=== PATIENT | female | born 1955 | race Caucasian/White ===

== ENCOUNTER 2022-05-24 12:44 | Outpatient (CLI) | payer MEDICARE, SELFPAY ==
--- NOTE | ~2022-05-24 | MM_ITS ---
EXAMINATION: MM screening phill BI w glenn HISTORY: Screening mammogram TECHNIQUE: Craniocaudal and mediolateral oblique 3-D tomosynthesis images were obtained and synthetic 2-D images were generated. CAD analysis was submitted and interpreted. COMPARISON: No prior mammogram is available for comparison at this institution. BREAST PARENCHYMAL COMPOSITION: There are scattered areas of fibroglandular density. FINDINGS: There is no evidence of suspicious mass, calcification, or architectural distortion to sugg est malignancy in either breast. There has been no suspicious interval change. IMPRESSION: 1. No mammographic evidence of malignancy. 2. Recommend routine screening mammography in one year. BI-RADS Category 1: Negative Reviewed, dictated and finalized at location A. NG ROOM SUPERVISOR
== END 2022-05-24 12:45 | disposition home or self-care (01) ==
LOC: CHSIMG 12:50
PROVIDERS: PCP Internal Medicine; Visit Provider Internal Medicine
DX: Z12.31 Encounter for screening mammogram for malignant neoplasm of breast (principal)
CPT/HCPCS: 77063; 77067

== ENCOUNTER 2022-06-01 09:48 | Outpatient (CLI) | payer MEDICARE, SELFPAY ==
--- NOTE | ~2022-06-01 | US_ITS ---
Pelvic ultrasound. Clinical History: Cervical polyp, abnormal Pap smears Technique: Realtime transabdominal and transvaginal scanning of the pelvis was performed. Color flow Doppler and Doppler spectral analysis were performed. Findings: The uterus is anteverted. The endometrial stripe is poorly delineated due to heterogeneous myometrium. Questionable endometrial thickening up to 17 mm. Small cervical nabothian cyst noted. The right ovary is not visualized. No significant right ovarian or adnexal mass is seen. The left ovary measures 3.0 x 2.1 x 2.4 cm. No significant left ovarian or adnexal mass is seen. There is no evidence of free fluid in the cul de sac. Impression: Endometrial stripe is poorly delineated due to heterogeneous myometrium. Questionable endometrial thi ckening up to 17 mm, but confidence in this measurement is low. If there is any clinical concern for endometrial carcinoma or any history of postmenopausal bleeding, then MR should be strongly considere d to better evaluate for endometrial thickening/abnormality. Reviewed, dictated and finalized at [facility]. NING PROFESSIONAL Impression: Endometrial stripe is poorly delineated due to heterogeneous myometrium. Questi onable endometrial thickening up to 17 mm, but confidence in this measurement i s low. If there is any clinical concern for endometrial carcinoma or any histor y of postmenopausal bleeding, then MR should be strongly considered to better e valuate for endometrial thickening/abnormality.
== END 2022-06-01 09:49 | disposition home or self-care (01) ==
LOC: CHSIMG 09:51
PROVIDERS: PCP Internal Medicine; Visit Provider Nurse Practitioner Family
DX: N84.1 Polyp of cervix uteri (principal); R87.619 Unspecified abnormal cytological findings in specimens from cervix uteri; R93.89 Abnormal findings on diagnostic imaging of other specified body structures
CPT/HCPCS: 76830; 76856

== ENCOUNTER 2022-07-18 02:05 | Day surgery (SDC) | payer MEDICARE, SELFPAY ==
--- NOTE | 2022-07-11 13:16 | PC.NURSE ---
Report to the Outpatient Waiting Room, entrance under the green pavilion located off [facility], at time __0900 on date __07/18/22 . Planned Procedure Time: _1100 . Time changes happen often and if your time is changed the preop area will call you the afternoon before. - You and your visitor will be asked to self-screen and do not enter if you have any COVID symptoms. - Only one visitor is requested with a max of two and NO children visitors are allowed at this time. - The patient visitor may be requested to leave or wait in car when not with patient due to distancing restrictions. - A mask is optional within the hospital at this time. Patients may have clear liquids (water, carbonated beverages, clear teas, apple juice) until 3 hours prior to surgery with a maximum of 20 ounces. - No food from midnight until time of surgery - Infants may have breast milk until 4 hours before surgery, infant formula 6 hours prior to surgery. - Children will be allowed to drink immediately following surgery. If applicable, please bring a bottle or sippy cup to assist with drinking. Juice, water, soda, and popsicles are readily available. For infants on formula, please bring formula the day of surgery. Pacifiers are allowed. Take the following medications with a SIP of water the morning of surgery: ___NONE DO NOT STOP ANY OF YOUR OTHER PRESCRIPTION MEDICATIONS PRIOR TO SURGERY ?EXCEPT THE FOLLOWING Medications to discontinue per physician ____ALL VITAMINS/SUPPLEMENTS 3 DAYS PRE OP.LAST DOSE 07/14/22 Please no make-up, nail urdu, hairspray, perfume, deodorant, or body powder the day of surgery. No jewelry (including any body piercings) or valuables the day of surgery, leave them at home. Please take a shower or bath the night before, or the morning of, surgery with an antibacterial soap. Wear comfortable, loose fitting clothing. Children are encouraged to wear pajamas. - Jewelry must be removed prior to entering the operating room. Rings and piercings that are not removed may be cut off. - The hospital will not accept responsibility for valuables. - Please leave all valuables, including medications, at home the day of surgery. If you are going home after surgery, a licensed tow car driver must drive you home. - NO public transportation without another adult if you receive anesthesia. - We recommend that an adult stay with you for 24 hours following discharge. - We also recommend that you do not drive, make important decision, drink alcoholic beverages, or take any drugs that were not prescribed by your health care provider for at least 24 hours after your discharge time. Follow any additional instructions given to you from your surgeon. If you or anyone in your household have experienced Covid symptoms in the past week, please notify your surgeon or the nurse liaison at the phone number below for possible testing. Telephone instructions given to __PATIENT and asked if any additional questions and then verbalized understanding. Patient advised to call surgeon office or pre surgery nurse liaison [phone] if any additional questions.
[2022-07-11 13:21] VITALS: BMI 29.1
--- NOTE | 2022-07-17 16:39 | PM.IMHP ---
H&P: HPI History of Present Illness Date/Time: 07/17/22 16:39 Chief Complaint: Abnormal endometrial thickening. Narrative: Patient is postmenopausal female on HRT was referred for evaluation after poorly defined endometrium lining measured 17mm. She has not had any postmenopausal bleeding. She does a cervical polyp on the cervix. Cervical cytology normal. She has been recommended for histologic evaluation of the thickened endometrium and has opted for D and C hysteroscopy and removal of endometrial and/or endocervical lesion. She has been recommended to stop HRT until pathology results are confirmed to be benign. Review of Systems Review of Systems: All systems reviewed & are unremarkable except as noted in HPI and below Constitutional: Constitutional: Reports no additional constitutional complaints Eyes: Eyes: Reports no additional eye complaints Cardiovascular: Cardiovascular: Reports no additional cardiovascular complaints Respiratory: Respiratory: Reports no additional respiratory complaints Gastrointestinal: Gastrointestinal: Reports no additional gastrointestinal complaints Genitourinary: Genitourinary: Reports no additional female genitourinary complaints and Reports as per HPI Integumentary/Breasts: Skin/Breast: Reports system reviewed and no additional complaints, except as docu Neurologic: Reports system reviewed and no additional complaints, except as documented Psychiatric: Psychiatric: Reports no additional psychiatric complaints Hematologic/Lymphatic: Hematologic/Lymphatic: Reports no additional hematologic/lymphatic complaints [facility] Past Medical History Medical History (Updated 06/29/22 @ 09:33 by Gorge Duval MD) Acid reflux Anxiety Basal cell carcinoma of skin of face 2007, 2016 History of Mohs micrographic surgery for skin cancer 2007 face, 2017 face, 2020 right upper arm Hypertension IBS (irritable bowel syndrome) Incontinence 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 Thickened endometrium Surgical History Surgical History (Updated 06/29/22 @ 08:08 by Kaylin Stringer MA) History of arthroscopic knee surgery History of colonoscopy History of esophagogastroduodenoscopy (EGD) History of Mohs surgery for squamous cell carcinoma in situ of skin Status post creation of urethral sling by suprapubic approach Family History Family History (Updated 06/29/22 @ 06:51 by Trista Leal CMA) Mother Hypertension Depression Fibrotic lung diseases Father Hypertension Heart disease Crohn's disease Sibling Multiple sclerosis Social History Social History (Updated 06/29/22 @ 07:52 by Kaylin Stringer MA) Smoking status: Never smoker Alcohol intake: current Drinks per week: 6 Alcohol use details: beer and wine Substance use: never Lack of Transportation: No Lack of Food: Never True Current Housing: I Have Housing Concerned About Future Housing: No Difficulty Paying Gas/Electric Bills: No Difficulty Paying for Meds: No Currently Unemployed: YES Living arrangements: with family Occupation/Education: retired Gender identity (if verbalized by the patient): Female Sexual Orientation (if Verbalized by the Patient): Straight or Heterosexual Spiritual care concerns: No Agree to blood products: Yes Meds Home Medications and Allergies Home Medications Medication Instructions Recorded Confirmed Type acetaminophen 500 mg tablet 500 mg PO Q6H PRN Pain 06/29/22 07/18/22 History (Tylenol Extra Strength) ascorbate calcium (vitamin C) 500 500 mg PO DAILY 06/29/22 07/18/22 History mg tablet azelastine 137 mcg (0.1 %) nasal 2 spray intranasal Q12H 06/29/22 07/18/22 History spray aerosol calcium carbonate 500 mg calcium 500 mg PO DAILY 06/29/22 07/18/22 History (1,250 mg) chewable tablet (Calcium 500) cetirizine 10 mg capsule (Zyrtec) 10 mg PO DAILY PRN Allergy Symptoms 06/29/22 07/18/22 History cholecalciferol (vitamin
[2022-07-18 09:01] VITALS: BP 150/71; PULSE 71; RESP 20; TEMP 36.1; O2SAT 100
--- NOTE | 2022-07-18 09:48 | WPDANESEPPF ---
Anes - Initial Pre Proc Eval Procedure: Operation Date: 07/18/22 11:00 Proposed Procedures p Hysteroscopy Dilation and Curettage, Possible Removal Endometrial Lesions - Gorge Duval MD Date/Time: 07/18/22 09:48 Surgeon: Gorge Duval MD Pre Op Diagnosis: thickened endometrium Patient Data Age: 67 Gender: F Height: 1.65 m Weight: 79.4 kg Allergies Allergy/AdvReac Type Severity Reaction Status Date / Time adhesive AdvReac Unknown Rash Verified 07/18/22 09:05 latex AdvReac Unknown Rash Verified 07/18/22 09:05 Home Medications Medication Instructions Recorded Confirmed Type acetaminophen 500 mg tablet 500 mg PO Q6H PRN Pain 06/29/22 07/18/22 History (Tylenol Extra Strength) ascorbate calcium (vitamin C) 500 500 mg PO DAILY 06/29/22 07/18/22 History mg tablet azelastine 137 mcg (0.1 %) nasal 2 spray intranasal Q12H 06/29/22 07/18/22 History spray aerosol calcium carbonate 500 mg calcium 500 mg PO DAILY 06/29/22 07/18/22 History (1,250 mg) chewable tablet (Calcium 500) cetirizine 10 mg capsule (Zyrtec) 10 mg PO DAILY PRN Allergy Symptoms 06/29/22 07/18/22 History cholecalciferol (vitamin D3) 50 50 mcg PO DAILY 06/29/22 07/18/22 History mcg (2,000 unit) capsule coenzyme Q10 75 mg capsule (Ultra 100 mg PO DAILY 06/29/22 07/18/22 History CoQ10) losartan 100 mg tablet 100 mg PO DAILY 06/29/22 07/18/22 History omeprazole 40 mg capsule,delayed 40 mg PO DAILY 06/29/22 07/18/22 History release rosuvastatin 10 mg tablet 10 mg PO DAILY 06/29/22 07/18/22 History valacyclovir 500 mg tablet 500 mg PO DAILY 06/29/22 07/18/22 History Patient hx anesthesia problems: none Family hx anesthesia problems: none Results Review: All pre-operative results and documents have been reviewed as part of the pre-operative evaluation. 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 Thickened endometrium Surgical History Surgical History (Updated 06/29/22 @ 08:08 by Kaylin Stringer MA) History of arthroscopic knee surgery History of colonoscopy History of esophagogastroduodenoscopy (EGD) History of Mohs surgery for squamous cell carcinoma in situ of skin Status post creation of urethral sling by suprapubic approach Family History Family History (Updated 06/29/22 @ 06:51 by Trista Leal CMA) Mother Hypertension Depression Fibrotic lung diseases Father Hypertension Heart disease Crohn's disease Sibling Multiple sclerosis Social History Social History (Updated 06/29/22 @ 07:52 by Kaylin Stringer MA) Smoking status: Never smoker Alcohol intake: current Drinks per week: 6 Alcohol use details: beer and wine Substance use: never Lack of Transportation: No Lack of Food: Never True Current Housing: I Have Housing Concerned About Future Housing: No Difficulty Paying Gas/Electric Bills: No Difficulty Paying for Meds: No Currently Unemployed: YES Living arrangements: with family Occupation/Education: retired Gender identity (if verbalized by the patient): Female Sexual Orientation (if Verbalized by the Patient): Straight or Heterosexual Spiritual care concerns: No Agree to blood products: Yes Anes - Eval Final PreProcedure Day of Procedure 07/18/22 09:48 Patient weight: overweight Heart: regular rate and rhythm Lungs: clear to auscultation and normal air movement Airway: Mallampati scale class II Neurological: alert and oriented Last oral intake: >/= 8 hours ASA classification: II Emergent: no Anesthetic plan: proceed Anesthesia type and monitoring: general GIVS and LMA Results Review: All pre-opera
[2022-07-18] MEDS: ACETAMINOPHEN 500 MG TABLET 1000 MG PO (10:01)
[2022-07-18] MEDS: LACTATED RINGERS 1,000 ML 30 ML IV CONT ×2 (10:05→11:22)
--- NOTE | 2022-07-18 10:40 | WPDHPUPDATE1 ---
History and Physical Update Update Date/Time: 07/18/22 10:40 History and Physical has been reviewed, including an updated exam of the patient. There are NO changes in the patient's condition. Risks, benefits, and alternatives have been discussed and questions answered. Patient agrees to proceed with procedure.
[2022-07-18] MEDS: ceFAZolin 2 GM/D5W 50 ML 2 GM/50 ML BAG IVPB (10:56)
[2022-07-18] MEDS: LIDOCAINE HCL 1% LOCAL INJ 20 ML VIAL 10 ML INFILTRATE (11:08)
[2022-07-18 11:22] VITALS: BP 129/64; PULSE 74; RESP 12; O2SAT 97
[2022-07-18 11:50] VITALS: BP 120/60; PULSE 63; RESP 20
--- NOTE | 2022-07-18 11:56 | W.PM.PROC2 ---
Procedure Note - Detailed Date of Procedure 07/18/22 Pre-op Diagnosis thickened endometrium Post-op Diagnosis Same Procedure Performed diagnostic hysteroscopy and dilation and curettage Surgeon Gorge Duval MD Anesthesia MAC and Local Indications patient with thickened endometrial stripe on ultrasound she is on hormone replacement therapy she has never had any postmenopausal bleeding she did have a cervical polyp on prior exam. Findings Cervix normal no polyp. Uterine cavity sounded to 7 cm there was scarring of the cavity no abnormal lesions seen. Description of Procedure After informed consent was obtained patient was taken to the operating room and adequate IV sedation was administered she was placed in low lithotomy position. Exam under anesthesia was performed uterus normal size no adnexal masses palpated. She was prepped and draped in sterile fashion. Attention was turned to the vagina. Speculum was inserted. Single-tooth tenaculum placed on anterior lip of the cervix. Cervical block was performed with lidocaine at the cervical vaginal interface at 2:58 a.m. and 10 o'clock position. Uterus was sounded to 7 cm. Cervix was dilated to an 8 Lucero dilator. Hysteroscope was inserted. The cavity appeared atrophic and scarring throughout the cavity no lesions. A curettage was then performed and could feel that some of the scarring was released with the curettage small amount of tissue was obtained. The hysteroscope was inserted again and the cavity appeared same with scarring present. No lesions noted. Hysteroscope was removed the deficit was noted to be 80 cc total insufflation fluid was 700 cc. Single-tooth tenaculum removed hemostasis was noted the speculum was removed the patient tolerated procedure well sponge count was correct and she was taken to recovery stable condition. Estimated Blood Loss 5 Drains No Packing No Pathology Yes ( endometrial curetting) Complications No immediate complications Condition Stable Disposition Same day [facility] Billing Surgery - Charge Forward: Surgery Billing
[2022-07-18 12:15] VITALS: BP 149/59; PULSE 65; RESP 20
== END 2022-07-18 12:29 | disposition home or self-care (01) ==
PROVIDERS: PCP Internal Medicine; Visit Provider Obstetrics & Gynecology
PROC: 0U5B8ZZ Destruction of Endometrium, Via Natural or Artificial Opening Endoscopic (ICD-10-PCS; CPT 58563; principal; 2022-07-18 11:00)
DX: N85.8 Other specified noninflammatory disorders of uterus (principal); I10 Essential (primary) hypertension; K21.9 Gastro-esophageal reflux disease without esophagitis
CPT/HCPCS: 58558; 88305; 88342; A9270; J0690; J2250; J2405; J2704; J3010; J7120

== ENCOUNTER 2022-07-23 10:57 | Outpatient (CLI) | payer MEDICARE, SELFPAY | END 2022-07-23 10:58 | disposition home or self-care (01) | LOC: CHSIMG 10:59 | PROVIDERS: PCP Internal Medicine; Visit Provider Internal Medicine | DX: S89.92XA Unspecified injury of left lower leg, initial encounter (principal) | CPT/HCPCS: 73562 ==

== ENCOUNTER → 2022-07-26 08:13 | Outpatient (CLI) | payer MEDICARE, SELFPAY ==
--- NOTE | ~2022-07-26 | MR_ITS ---
EXAMINATION: MR knee LT wo con DATE: 07/26/2022 09:07 INDICATION: Internal derangement of the left knee TECHNIQUE: Magnetic resonance imaging (MRI) of the left knee was performed without intravenous contra st. Sequences included coronal PD-weighted FSE, coronal PD-weighted FS FSE, sagittal T2-weighted FSE , sagittal PD-weighted FS FSE and axial PD weighted fat saturated FSE. COMPARISON: Radiographs dated 07/23/2022 FINDINGS: Medial compartment: Complex medial meniscal tear with medial extrusion of the meniscal body. This includes a full-thickne ss radial tear/avulsion at the posterior root as well as and longitudinal horizontal tear plane which extends to the intra-articular surface of the inner third of the posterior horn and body of the meni scus. Partial-thickness cartilage loss and superimposed deep chondral fissuring without degenerative subchondral changes along the posterior third of the medial tibial plateau and juxtaposed central xuan ghtbearing medial femoral condyle. Lateral compartment: Lateral meniscus is normal. Articular cartilage is normal. Patellofemoral compartment: Deep chondral ulceration without degenerative subchondral changes at the inferior aspect of the troch lear groove. Remaining cartilage in the patellofemoral compartment appears normal. Ligaments and tendons: Anterior and posterior cruciate ligaments are normal. The medial collateral ligament and fibular marcin ateral ligament complex are normal. Patellar tendon is normal. Minimal tendinopathy and small entheso phytes at the patellar insertion of the distal quadriceps tendon. The visualized medial and lateral h amstring tendons as well as the iliotibial band are normal. Fluid: Small left knee joint effusion. There is mild soft tissue edema surrounding the knee and more promine ntly extending caudally into the calf from a small potentially partially ruptured Eddy's cyst along the posterior medial aspect of the medial head of the gastrocnemius muscle. No loose osteochondral bhumi dies identified. Osseous/other: Normal marrow signal. No fracture or pathologic marrow replacing process. IMPRESSION: 1. Complex medial meniscal tear including full-thickness radial tear/avulsion at the posterior root. 2. Mild osteoarthritis with regions of moderate grade chondromalacia in the medial and patellofemoral compartments. 3. Likely reactive small left knee joint effusion and soft tissue edema extending caudally from a lik christiana partially ruptured small Eddy's cyst. Reviewed, dictated and finalized at location A. IMPRESSION: 1. Complex medial meniscal tear including full-thickness radial tear/avulsion a t the posterior root. 2. Mild osteoarthritis with regions of moderate grade chondromalacia in the med ial and patellofemoral compartments. 3. Likely reactive small left knee joint effusion and soft tissue edema extendi ng caudally from a likely partially ruptured small Eddy's cyst.
== END ==
PROVIDERS: PCP Internal Medicine; Visit Provider Internal Medicine
DX: S83.232A Complex tear of medial meniscus, current injury, left knee, initial encounter (principal); M17.12 Unilateral primary osteoarthritis, left knee; M22.42 Chondromalacia patellae, left knee; X58.XXXA Exposure to other specified factors, initial encounter
CPT/HCPCS: 73721

== ENCOUNTER 2022-07-30 14:42 | Outpatient (CLI) | payer MEDICARE, SELFPAY ==
--- NOTE | ~2022-07-30 | XR_ITS ---
EXAMINATION: XR wrist LT min 3V DATE: 07/30/2022 15:05 INDICATION: Left wrist pain. TECHNIQUE: 4 views of left wrist were obtained. COMPARISON: None. FINDINGS: Bone alignment is normal. There is neutral ulnar variance. No fracture. There is mild osteo arthrosis of first carpometacarpal joint. There is degenerative cystic change in proximal lunate, lik christiana ulnolunate impaction syndrome. IMPRESSION: 1. Mild polyarticular osteoarthritis. Reviewed, dictated and finalized at location A.
== END 2022-07-30 14:43 | disposition home or self-care (01) ==
LOC: CHSIMG 14:44
PROVIDERS: PCP Internal Medicine; Visit Provider Internal Medicine
DX: S69.92XA Unspecified injury of left wrist, hand and finger(s), initial encounter (principal); M19.012 Primary osteoarthritis, left shoulder
CPT/HCPCS: 73110

== ENCOUNTER 2022-09-05 18:47 | Emergency (ER) | payer MEDICARE, SELFPAY ==
[2022-09-05 18:48] VITALS: BP 148/76; PULSE 71; RESP 20; TEMP 36.8; O2SAT 99
--- NOTE | 2022-09-05 19:28 | ED.GENADULT ---
HPI - General Adult General Chief complaint: Wound/Laceration Stated complaint: Laceration L finger Time Seen by Provider: 09/05/22 18:51 History of Present Illness HPI narrative: Healthy 67yo woman presents with laceration to her left middle finger sustained tonight while trying to cut a piece of corn. Clean knife. Clean corn. No tissue loss or nailbed damage. Related Data Home Medications Medication Instructions Recorded Confirmed ascorbate calcium (vitamin C) 500 500 mg PO DAILY 06/29/22 09/05/22 mg tablet azelastine 137 mcg (0.1 %) nasal 2 spray intranasal Q12H 06/29/22 09/05/22 spray aerosol calcium carbonate 500 mg calcium 500 mg PO DAILY 06/29/22 09/05/22 (1,250 mg) chewable tablet (Calcium 500) cetirizine 10 mg capsule (Zyrtec) 10 mg PO DAILY PRN Allergy Symptoms 06/29/22 09/05/22 cholecalciferol (vitamin D3) 50 50 mcg PO DAILY 06/29/22 09/05/22 mcg (2,000 unit) capsule coenzyme Q10 75 mg capsule (Ultra 100 mg PO DAILY 06/29/22 09/05/22 CoQ10) losartan 100 mg tablet 100 mg PO DAILY 06/29/22 09/05/22 omeprazole 40 mg capsule,delayed 40 mg PO DAILY 06/29/22 09/05/22 release rosuvastatin 10 mg tablet 10 mg PO DAILY 06/29/22 09/05/22 valacyclovir 500 mg tablet 500 mg PO DAILY 06/29/22 09/05/22 Allergies Allergy/AdvReac Type Severity Reaction Status Date / Time adhesive AdvReac Unknown Rash Verified 09/05/22 19:00 latex AdvReac Unknown Rash Verified 09/05/22 19:00 Review of Systems Review of Systems: Healthy 67yo woman presents with laceration to her left middle finger sustained tonight while trying to cut a piece of corn. Clean knife. Clean corn. No tissue loss or nailbed damage. 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 Thickened endometrium Surgical History Surgical History History of arthroscopic knee surgery History of colonoscopy History of esophagogastroduodenoscopy (EGD) History of Mohs surgery for squamous cell carcinoma in situ of skin S/P dilation and curettage Status post creation of urethral sling by suprapubic approach Family History Family History Mother Hypertension Depression Fibrotic lung diseases Father Hypertension Heart disease Crohn's disease Sibling Multiple sclerosis Social History Social History Smoking status: Never smoker Alcohol intake: current Drinks per week: 6 Alcohol use details: beer and wine Substance use: never Lack of Transportation: No Lack of Food: Never True Current Housing: I Have Housing Concerned About Future Housing: No Difficulty Paying Gas/Electric Bills: No Difficulty Paying for Meds: No Currently Unemployed: YES Living arrangements: with family Occupation/Education: retired Gender identity (if verbalized by the patient): Female Sexual Orientation (if Verbalized by the Patient): Straight or Heterosexual Spiritual care concerns: No Agree to blood products: Yes Exam Const: General: healthy appearing, no acute distress and alert Eyes: Conjunctivae: conjunctivae normal Resp: Effort & Inspection: normal respiratory effort and not labored Cardio: Rate: regular rate Skin: General skin exam: normal color,
[2022-09-05 19:56] VITALS: BP 128/68; PULSE 70; RESP 18; TEMP 36.4; O2SAT 98
== END 2022-09-05 19:59 | disposition home or self-care (01) ==
PROVIDERS: Emergency Provider Emergency Medicine; PCP Internal Medicine
DX: S61.213A Laceration without foreign body of left middle finger without damage to nail, initial encounter (principal); W26.0XXA Contact with knife, initial encounter; I10 Essential (primary) hypertension; K21.9 Gastro-esophageal reflux disease without esophagitis; F41.9 Anxiety disorder, unspecified
CPT/HCPCS: 12001; 99282

== ENCOUNTER 2023-04-23 11:20 | Outpatient (CLI) | payer MEDICARE, SELFPAY ==
--- NOTE | ~2023-04-23 | XR_ITS ---
XR lumbar spine 2-3V DATE: 04/23/2023 12:03 INDICATION: Back pain TECHNIQUE: AP, lateral, coned lateral lumbosacral views COMPARISON: None FINDINGS: The lumbar vertebrae are normally aligned. No fracture or bone destruction or spondylolisth esis. There is mild degenerative disc disease and spurring at L1-2, L2-3 and L3-4. There is severe degenerative disc disease at L4-5 and L5-S1 as well as prominent degenerative change at the apophyseal joints at the mid and lower lumbar spine. Primary spinal stenosis is not excluded. The included lower thoracic and lumbar pedicles are intact.. Mild abdominal aortic calcification. IMPRESSION: Multilevel degenerative disc disease, severe at L4-5 and L5-S1 Primary lumbar spinal stenosis is not excluded; CT lumbar spine would be helpful for evaluation of an y suspected primary lumbar spinal stenosis.. Reviewed, dictated and finalized at location L. BER MAGISTRATE IMPRESSION: Multilevel degenerative disc disease, severe at L4-5 and L5-S1 Primary lumbar spinal stenosis is not excluded; CT lumbar spine would be helpfu l for evaluation of any suspected primary lumbar spinal stenosis..
--- NOTE | ~2023-04-23 | XR_ITS ---
XR_CERV2-3V_CR DATE: 04/23/2023 12:03 INDICATION: Neck pain, bilateral arm and hand numbness. TECHNIQUE: AP, open-mouth, lateral views COMPARISON: None FINDINGS: C1 and C2 are normally aligned and the odontoid process is intact. No fracture or dislocati on or locked facet or prevertebral soft tissue swelling. There is moderate loss of interspace height and mild spurring at C6-7. The remaining cervical intersp aces are well preserved. There is uncovertebral joint spurring bilaterally at C6-7. IMPRESSION: Moderate degenerative disc disease and bilateral uncovertebral joint spurring at C6-7 Reviewed, dictated and finalized at Location A. Reviewed, dictated and finalized at location L. T CLEANER IMPRESSION: Moderate degenerative disc disease and bilateral uncovertebral join t spurring at C6-7
== END 2023-04-23 11:21 | disposition home or self-care (01) ==
LOC: CHSIMG 11:23
PROVIDERS: PCP Internal Medicine; Visit Provider Internal Medicine
DX: M54.50 Low back pain, unspecified (principal); M51.36 Other intervertebral disc degeneration, lumbar region; M50.323 Other cervical disc degeneration at C6-C7 level
CPT/HCPCS: 72040; 72100

== ENCOUNTER 2023-04-24 15:04 | Outpatient (CLI) | payer MEDICARE, SELFPAY ==
--- NOTE | ~2023-04-24 | MR_ITS ---
EXAMINATION: MR lumbar spine wo con DATE: 04/24/2023 16:15 INDICATION: Low back pain. TECHNIQUE: Magnetic resonance imaging (MRI) of the lumbar spine was performed without intravenous con trast. Sequences included sagittal T2-weighted FSE, sagittal T2-weighted FS FSE, sagittal T1-weighted FSE, and axial T2-weighted FSE. COMPARISON: Lumbar spine radiographs 04/23/2023 FINDINGS: There is 6 degrees dextrocurvature of lumbar spine. There is 3 mm retrolisthesis of L5 on S 1. Vertebral body heights are normal. There is mildly decreased disc height at L3-L4 and severely dec reased disc height at L4-L5 and L5-S1. The distal spinal cord signal intensity is normal. The conus m edullaris is at L1-L2. The following disc levels are specifically discussed: L1-L2: The disc does not extend beyond the endplate margin. There is mild bilateral facet joint osteo arthritis. There is no neural foraminal stenosis. There is no central canal stenosis. L2-L3: The disc is bulging. There is severe bilateral facet joint osteoarthritis. There is mild bilat eral neural foraminal stenosis. There is mild central canal stenosis. L3-L4: The disc is bulging. There is severe bilateral facet joint osteoarthritis. There is mild bilat eral neural foraminal stenosis. There is mild central canal stenosis. L4-L5: The disc is bulging with superimposed left subarticular zone extrusion with 12 mm inferior ext ension and with mass effect on left L5 nerve root in left lateral recess. There is severe right and m oderate left facet joint osteoarthritis. There is moderate bilateral neural foraminal stenosis. There is mild central canal stenosis. There is severe stenosis of the lateral recesses. L5-S1: The disc is bulging. There is severe bilateral facet joint osteoarthritis. There is moderate r ight and severe left neural foraminal stenosis. There is mild central canal stenosis. There is severe stenosis of the lateral recesses. IMPRESSION: 1. Severe lower lumbar spondylosis. Reviewed, dictated and finalized at location E. ODULE ASSEMBLY SUPERVISOR
--- NOTE | ~2023-04-24 | MR_ITS ---
EXAMINATION: MR cervical spine wo con DATE: 04/24/2023 16:15 INDICATION: Neck pain. TECHNIQUE: Magnetic resonance imaging (MRI) of the cervical spine was performed without intravenous c ontrast. COMPARISON: Cervical spine radiographs 04/23/2023 FINDINGS: Bone alignment is normal. Vertebral body heights are normal. There is mildly decreased disc height at C6-C7. The spinal cord signal intensity is normal. The following disc levels are specifica lly discussed: C2-C3: The disc does not extend beyond the endplate margin. There is no uncovertebral joint osteoarth ritis. There is mild right and moderate left facet joint osteoarthritis. There is no neural foraminal stenosis. There is no central canal stenosis. C3-C4: There is a central protrusion. There is no uncovertebral joint osteoarthritis. There is modera te bilateral facet joint osteoarthritis. There is no neural foraminal stenosis. There is mild central canal stenosis. C4-C5: There is a central protrusion. There is mild bilateral uncovertebral joint osteoarthritis. The re is moderate bilateral facet joint osteoarthritis. There is no neural foraminal stenosis. There is mild central canal stenosis. C5-C6: There is a central protrusion. There is no uncovertebral joint osteoarthritis. There is severe right and mild left facet joint osteoarthritis. There is mild right neural foraminal stenosis. There is mild central canal stenosis. C6-C7: The disc is bulging. There is severe bilateral uncovertebral joint osteoarthritis. There is se ayla right and moderate left facet joint osteoarthritis. There is moderate bilateral neural foraminal stenosis. There is mild central canal stenosis. C7-T1: The disc does not extend beyond the endplate margin. There is no uncovertebral joint osteoarth ritis. There is mild bilateral facet joint osteoarthritis. There is no neural foraminal stenosis. The re is no central canal stenosis. IMPRESSION: 1. Moderate cervical spondylosis. Reviewed, dictated and finalized at location E. ON AND BOND COLLECTION CLERK
== END 2023-04-24 15:05 ==
PROVIDERS: PCP Internal Medicine; Visit Provider Internal Medicine
DX: M47.892 Other spondylosis, cervical region (principal); M47.896 Other spondylosis, lumbar region
CPT/HCPCS: 72141; 72148

== ENCOUNTER 2023-05-08 15:48 | Outpatient (RCR) | payer MEDICARE, SELFPAY ==
--- NOTE | 2023-05-08 17:34 | OPREHPOC ---
Outpatient Therapy Plan of Care This is a Multidisciplinary Plan of Care that may contain components documented by all disciplines (PT, OT, and ST.) PT Problem 1 PT Problem #1 Knowledge Deficit PT Goal 1 Goal 1. independent and compliant with HEP Target Visit 4 PT Problem 2 PT Problem #2 Impaired Strength PT Goal 1 Goal 1. improve bilateral shoulder strength to 5/5 overall 2. improve bilateral hip strength to 5/5 overall 3. improve core strength to 4/5 4. patient to hold bridge for 30 seconds without posture loss Target Visit 9 PT Problem 3 PT Problem #3 Pain PT Goal 1 Goal 1. patient to report mild or less pain and symptoms with routine activities to improve quality of life. Target Visit 9 PT Problem 4 PT Problem #4 Impaired Functional Mobil PT Goal 1 Goal 1. patient to report centralization of UE and LE radicular symptoms. 2. oswestry to display 20% or less functional deficits 3. NDI to display 20% or less functional deficits 4. patient to display improved posture of the shoulders and neck with less rounding and forward head Target Visit 9
--- NOTE | 2023-05-08 17:34 | PTOPEVAL1 ---
Assessment and note entered by JT File, PT Evaluation Information Assessment Status Evaluation Diagnosis chronic neck/lower back pain Onset 05/03/23 Subjective Information patient reports she has been having pain in the neck since 2007. she reports she has been managing with home health aide caregiver. she reports since she retired in 2018 she has been less active. she reports since a few years ago, she has been traveling more back and forth to her parents property. she reports after her father she had to manage selling and handling his estate which meant a lot of lifting of boxes and furniture. she reports from [id number] all her issues were on her L UE. she reports she was having numbness/tingling in this arm. she reports during her traveling times, she was carrying lots of legal papers and a computer in a bag on the R shoulder. she reports she is here for the pain in her arms. she reports she has excrutiating pain in both arms. she reports she also has numbness and tingling in both arms. she reports she has numbness and down to the hand bilaterally. she reports mostly to the thumb, index, and middle finger. she reports at times she has symptoms in the ring and little finger, but no as often and not lasting. she reports she has difficulty with opening jars with the R more than the L hand. she reports the symptoms run down the whole arm. Reported Pain Level Pain Score Moderate Pain: Arambula Eddy Additional Pain Score Comments neck and lower back Assessment PT Clinical Summary mrs. sherry mullen is a 68 yo woman who presents to skilled PT for evaluation and treatment of neck and lower back pain. she is complicated by a long history of symptoms, but recently has had a flare up from increased lifting and travel. she presents today with signs and symptoms of lumbar and cervical radiculopathy. however, dequervains tenosynovitis of the L wrist, and carpal tunnel of the R wrist cannot be ruled out. she presents with limited passive and active cervical rom, decreased flexibility, mm weakness, core weakness, and radicular symptoms of the L LE and bilateral UE's. she would benefit from continued skilled PT to improve her objective/functional deficits and progress towards return to prior level functional activity performance and quality of life. Plan of Care Interventions Electrical
--- NOTE | 2023-05-30 14:33 | OPREHPOC ---
Outpatient Therapy Plan of Care This is a Multidisciplinary Plan of Care that may contain components documented by all disciplines (PT, OT, and ST.) PT Problem 1 PT Problem #1 Knowledge Deficit PT Goal 1 Goal 1. independent and compliant with HEP Target Visit 4 Progress Met PT Problem 2 PT Problem #2 Impaired Strength PT Goal 1 Goal 1. improve bilateral shoulder strength to 5/5 overall. not met 2. improve bilateral hip strength to 5/5 overall. not met 3. improve core strength to 4/5. not met 4. patient to hold bridge for 30 seconds without posture loss. met Target Visit 13 Progress Partially Met PT Problem 3 PT Problem #3 Pain PT Goal 1 Goal 1. patient to report mild or less pain and symptoms with routine activities to improve quality of life. Target Visit 13 Progress Partially Met PT Problem 4 PT Problem #4 Impaired Functional Mobil PT Goal 1 Goal 1. patient to report centralization of UE and LE radicular symptoms. not met 2. oswestry to display 20% or less functional deficits. not met 3. NDI to display 20% or less functional deficits. not met 4. patient to display improved posture of the shoulders and neck with less rounding and forward head. not met Target Visit 13
--- NOTE | 2023-05-30 14:33 | PTOPREEVAL ---
Assessment and note entered by JT File, PT Evaluation Information Assessment Status Re-evaluation Diagnosis chronic neck/lower back pain Onset 05/03/23 Subjective Information patient reports overall everything with the neck and the lower back are better. she reports she continues to have symptoms in the fingers in the R hand, and the L hand is fine. she reports the neck continues to crunch a lot. she reports she feels the exercises for the neck do help. she reports her R shoulder blade is sensitive, but not near as tender/sensitive as her initial evaluation. she reports her lower back is about the same. she reports she has less sciatic symptoms with exercises. she reports it is still difficult to stand on her kitchen floor without being on a foam mat. Reported Pain Level Pain Score 2,2: Self Report Assessment PT Clinical Summary mrs. sherry mullen presents to skilled PT services for her 9th skilled therapy visit today. she displays improved cervical rotation and side bending, decreased pain in the neck and back, and improve oswestry and NDI scores. she continues to have deficits in achievement of goals for core/UE/ LE strength, and functional activity/oswestry/NDI performance. due to her improvements, but also continued deficits, patient would benefit from continued skilled PT to address her remaining unmet goals. Plan of Care Interventions Electrical Stimulation,Hot Pack/Cold Pack,Manual Therapy,Mechanical Traction,Neuro Re-education, Patient/Caregiver Educati,Therapeutic Activities, Therapeutic Exercise PT Services Indicated Yes Treatment Frequency and continue skilled PT 2x weekly for 4 more visits Duration These treatments will address the objective and functional deficits as defined above. The patient will be advanced safely and appropriately in order for the patient to progress towards his/her prior level of function. Additional exercises will be introduced and as well as a comprehensive home exercise program upon discharge, if needed, ?to ensure carryover of functional gains achieved in the clinic. This treatment plan has been reviewed and agreement upon by the patient.
--- NOTE | 2023-06-26 22:39 | OPREHPOC ---
Outpatient Therapy Plan of Care This is a Multidisciplinary Plan of Care that may contain components documented by all disciplines (PT, OT, and ST.) PT Problem 1 PT Problem #1 Knowledge Deficit PT Goal 1 Goal 1. independent and compliant with HEP Target Visit 4 Progress Met PT Problem 2 PT Problem #2 Impaired Strength PT Goal 1 Goal 1. improve bilateral shoulder strength to 5/5 overall. not met 2. improve bilateral hip strength to 5/5 overall. not met 3. improve core strength to 4/5. not met 4. patient to hold bridge for 30 seconds without posture loss. met Target Visit 13 Progress Partially Met PT Problem 3 PT Problem #3 Impaired Gait PT Goal 1 Goal 1. patient to report mild or less pain and symptoms with routine activities to improve quality of life. Target Visit 13 Progress Met PT Problem 4 PT Problem #4 Impaired Functional Mobil PT Goal 1 Goal 1. patient to report centralization of UE and LE radicular symptoms. not met 2. oswestry to display 20% or less functional deficits. not met 3. NDI to display 20% or less functional deficits. not met 4. patient to display improved posture of the shoulders and neck with less rounding and forward head. not met Target Visit 13 Progress Not Met
--- NOTE | 2023-06-26 22:40 | PTOPDC ---
Assessment and note entered by JT File, PT Evaluation Information Assessment Status Discharge Diagnosis chronic neck/lower back pain Onset 05/03/23 Subjective Information patient reports she is Better overall in the neck and back. however, she reports she knows her back will always be problematic for her. she reports lifting still causes increased pain in the lower back, but she is able to limit her lifting activities and keep her pain lower. she reports she has less pain and headaches day to day, but still feels tight in the neck. Assessment PT Clinical Summary mrs. samaria mullen presents to skilled PT services for her 13th skilled PT visit. she presents today with improvements in cervical rom, UE and LE strength, and core strength. however, she continues to have deficits in core stability, UE/ LE strength, and functional activity performance. her symptoms are now managed with modalities and exercises that she can continue at home. she will DC skilled PT today, but was instructed to follow up with PT if symptoms return or she experiences regression in her quality of life due to the neck or back. Plan of Care PT Services Indicated Yes
== END 2023-06-13 20:00 | disposition home or self-care (01) ==
LOC: CHSPT 15:48
PROVIDERS: PCP Internal Medicine; Visit Provider Internal Medicine
DX: M54.2 Cervicalgia (principal); M54.50 Low back pain, unspecified
CPT/HCPCS: 97014; 97110; 97140; 97162; G0283

== ENCOUNTER 2023-05-21 09:42 | Outpatient (CLI) | payer MEDICARE, SELFPAY ==
--- NOTE | 2023-05-21 11:00 | NEURO_ITS ---
Impression: # Complains of numbness of hands. History of arthritis as well. # Bilateral Carpal Tunnel Syndrome, right more than left. # No ulnar neuropathy. # Normal needle/EMG exam. # Clinical correlation recommended. For higher involvement correlate with MRI. Nerve Conduction Studies Anti Sensory Summary Table Stim Site NR Peak (ms) P-T Amp (?V) Site1 Site2 Delta-P (ms) Dist (cm) Marciano (m/s) Left Median Anti Sensory (2-3nd Digit) Wrist 3.7 33.1 Wrist 2-3nd Digit 3.7 14.0 38 Wrist 4.2 15.5 Wrist 2-3nd Digit 3.7 14.0 38 Right Median Anti Sensory (2-3nd Digit) NO RESPONSE Wrist NR Wrist 2-3nd Digit 14.0 Wrist NR Wrist 2-3nd Digit 14.0 Left Radial Anti Sensory (Base 1st Digit) Wrist 2.2 18.1 Wrist Base 1st Digit 2.2 0.0 Right Radial Anti Sensory (Base 1st Digit) Wrist 2.6 13.7 Wrist Base 1st Digit 2.6 0.0 Left Ulnar Anti Sensory (5th Digit) Wrist 2.5 36.5 Wrist 5th Digit 2.5 14.0 56 Right Ulnar Anti Sensory (5th Digit) Wrist 2.3 50.9 Wrist 5th Digit 2.3 14.0 61 Motor Summary Table Stim Site NR Onset (ms) O-P Amp (mV) Site1 Site2 Delta-0 (ms) Dist (cm) Marciano (m/s) Left Median Motor (Abd Poll Brev) Wrist 3.4 7.7 Elbow Wrist 4.8 28.0 58 Elbow 8.2 5.8 Right Median Motor (Abd Poll Brev) Wrist 2.8 7.4 Elbow Wrist 5.4 31.0 57 Elbow 8.2 6.7 Left Ulnar Motor (Abd Dig Minimi) Wrist 2.0 7.2 A Elbow Wrist 5.1 32.0 63 A Elbow 7.1 5.5 Right Ulnar Motor (Abd Dig Minimi) Wrist 2.1 5.0 A Elbow Wrist 4.8 29.0 60 A Elbow 6.9 3.0 F Wave Studies NR F-Lat (ms) L-R F-Lat (ms) Left Median (Mrkrs) (Abd Poll Brev) 27.72 0.01 Right Median (Mrkrs) (Abd Poll Brev) 27.73 0.01 Left Ulnar (Mrkrs) (Abd Dig Min) 27.24 0.04 Right Ulnar (Mrkrs) (Abd Dig Min) 27.21 0.04 EMG Side Muscle Nerve Root Ins Act Fibs Amp Dur Recrt Comment Right 1stDorInt Ulnar C8-T1 Nml Nml Nml Nml Nml Right Ext Indicis Radial (Post Int) C7-8 Nml Nml Nml Nml Nml Right Ext Digitorum Radial (Post Int) C7-8 Nml Nml Nml Nml Nml Right BrachioRad Radial C5-6 Nml Nml Nml Nml Nml Right PronatorTeres Median C6-7 Nml Nml Nml Nml Nml Right Abd Poll Brev Median C8-T1 Nml Nml Nml Nml Nml Left 1stDorInt Ulnar C8-T1 Nml Nml Nml Nml Nml Left Ext Indicis Radial (Post Int) C7-8 Nml Nml Nml Nml Nml Left Ext Digitorum Radial (Post Int) C7-8 Nml Nml Nml Nml Nml Left BrachioRad Radial C5-6 Nml Nml Nml Nml Nml Left PronatorTeres Median C6-7 Nml Nml Nml Nml Nml Left Abd Poll Brev Median C8-T1 Nml Nml Nml Nml Nml Right ABD Dig Min Ulnar C8-T1 Nml Nml Nml Nml Nml Left ABD Dig Min Ulnar C8-T1 Nml Nml Nml Nml Nml MTDD
== END 2023-05-21 09:43 | disposition home or self-care (01) ==
LOC: ANHNEURO 09:46
PROVIDERS: PCP Internal Medicine; Visit Provider Internal Medicine
DX: G56.03 Carpal tunnel syndrome, bilateral upper limbs (principal)
CPT/HCPCS: 95886; 95911

== ENCOUNTER 2023-05-28 07:23 | Outpatient (CLI) | payer MEDICARE, SELFPAY ==
--- NOTE | ~2023-05-28 | DEXA_ITS ---
Bone Density Report Name: SHARONA AMOS Age: 68 Sex: Female Ethnicity: White Date of : 1955 Indication: postmenopausal; screening for osteoporosis; height loss; cancer; Referring Provider: Gorge Duval Study: Bone densitometry was performed. Exam Date: May 28, 2023 Accession number: [id number] Bone Density: Region BMD T-score Z-score Classification AP Spine(L1, L2, L3) 1.192 1.6 3.5 Normal Femoral Neck (Left) 0.876 0.2 1.9 Normal Total Hip (Left) 1.046 0.9 2.3 Normal Femoral Neck (Right) 0.984 1.2 2.9 Normal Total Hip (Right) 1.027 0.7 2.1 Normal Femoral Neck Mean 0.930 0.7 2.4 Normal Total Hip Mean 1.037 0.8 2.2 Normal World Health Organization criteria for BMD impression classify patients as: Normal (T-score at or above -1.0), Osteopenia (T-score between -1.0 and -2.5), or Osteoporosis (T-score at or below -2.5). 10-year Fracture Risk: FRAX not reported because: All T-scores for Spine Total, Hip Total, Femoral Neck at or above -1.0 Clinical Information Provided by Patient: Has used the following medications: Vitamin D, Calcium Has the following medical conditions: Cancer Patient maximum height was 66 Menopause Age: 58 No regular weight bearing exercise Does not regularly consume dairy products Drinks caffeinated beverages Onset of menses at age 14 Number of children 0 Impression: The patient has normal bone mass. Discussion: BONE DENSITY IS ABOVE THE MINIMUM DESIRABLE LEVEL AT ALL SKELETAL SITES TESTED. This patient?s bone mineral density is above the minimum desirable level (T-score -1.0 or better) at all sites measured. The patient should follow a healthful lifestyle (good nutrition with adequate calcium and vitamin D, and appropriate weight-bearing exercise). Follow-Up: Consider repeating this study in 5 years or sooner if there is some new clinical indication. Reported by: Dr. Chun Vera on 05/28/2023 8:04:00 AM. Reviewed, dictated and finalized at location A.
--- NOTE | ~2023-05-28 | MM_ITS ---
EXAMINATION: MM screening [facility] BI w [facility] HISTORY: Screening TECHNIQUE: Craniocaudal and mediolateral oblique 3-D tomosynthesis images were obtained and synthetic 2-D images were generated. CAD analysis was submitted and interpreted. COMPARISON: Comparison to multiple prior studies sequentially, with oldest reviewed study dated 08/21. BREAST PARENCHYMAL COMPOSITION: Not dense: There are scattered areas of fibroglandular density. FINDINGS: There is no evidence of suspicious mass, calcification, or architectural distortion to sugg est malignancy in either breast. There has been no suspicious interval change. IMPRESSION: 1. No mammographic evidence of malignancy. 2. Recommend routine screening mammography in one year. BI-RADS Category 1: Negative Reviewed, dictated and finalized at location A. HEALTH CARE WORKER
== END 2023-05-28 07:24 | disposition home or self-care (01) ==
LOC: CHSIMG 07:24
PROVIDERS: PCP Internal Medicine; Visit Provider Obstetrics & Gynecology
DX: Z12.31 Encounter for screening mammogram for malignant neoplasm of breast (principal); Z78.0 Asymptomatic menopausal state
CPT/HCPCS: 77063; 77067; 77080

== ENCOUNTER 2023-07-03 02:59 | Day surgery (SDC) | payer MEDICARE, SELFPAY ==
--- NOTE | 2023-06-26 13:25 | PC.NURSE ---
Addendum entered by Toña Boyce RN 06/26/23 13:27: NOTHING TO EAT OR DRINK 8 HOURS PRIOR TO SURGERY PER DR CINTRON ([id number]) Original Note: Report to the Outpatient Waiting Room, entrance under the green pavilion located off [facility], at time __1000 on date __07/03/23 . Planned Procedure Time: ___1200 . Time changes happen often and if your time is changed the preop area will call you the afternoon before. - You and your visitor will be asked to self-screen and do not enter if you have any COVID symptoms. - A mask is optional within the hospital at this time. Patients may have clear liquids (water, carbonated beverages, clear teas, apple juice) until 3 hours prior to surgery ( 9:00 AM)with a maximum of 20 ounces. - No food from midnight until time of surgery - Infants may have breast milk until 4 hours before surgery, formula 6 hours prior to surgery. - Children will be allowed to drink immediately following surgery. If applicable, please bring a bottle or sippy cup to assist with drinking. Juice, water, soda, and popsicles are readily available. For infants on formula, please bring formula the day of surgery. Pacifiers are allowed. Take the following medications with a SIP of water the morning of surgery: ___NONE DO NOT STOP ANY OF YOUR OTHER PRESCRIPTION MEDICATIONS PRIOR TO SURGERY ?EXCEPT THE FOLLOWING Medications to discontinue per physician ALL VITAMINS AND SUPPLEMENTS 3 DAYS PRE OP .LAST DOSE 06/29/23 Please no make-up, nail setswana, hairspray, perfume, deodorant, or body powder the day of surgery. No jewelry (including any body piercings) or valuables the day of surgery, leave them at home. Please take a shower or bath the night before, or the morning of, surgery with an antibacterial soap. Wear comfortable, loose fitting clothing. Children are encouraged to wear pajamas. - Jewelry must be removed prior to entering the operating room. Rings and piercings that are not removed may be cut off. - The hospital will not accept responsibility for valuables. - Please leave all valuables, including medications, at home the day of surgery. If you are going home after surgery, a licensed driver sales must drive you home. - NO public transportation without another adult if you receive anesthesia. - We recommend that an adult stay with you for 24 hours following discharge. - We also recommend that you do not drive, make important decision, drink alcoholic beverages, or take any drugs that were not prescribed by your health care provider for at least 24 hours after your discharge time. Follow any additional instructions given to you from your surgeon. If you or anyone in your household have experienced Covid symptoms in the past week, please notify your surgeon or the nurse liaison at the phone number below for possible testing. Telephone instructions given to PATIENT and asked if any additional questions and then verbalized understanding. Patient advised to call surgeon office or pre surgery nurse liaison [phone] if any additional questions.
[2023-06-26 13:32] VITALS: BMI 29.6
--- NOTE | 2023-07-03 07:05 | WPDHPUPDATE1 ---
History and Physical Update Update Date/Time: 07/03/23 07:05 Patient seen and examined in pre-operative holding area. No interval change in medical history or symptoms. Patient recalls previous discussion of benefits and alternatives to procedure. Continues to desire to proceed with right endoscopic possible open carpal tunnel release . Reviewed procedure, post-op expectations and risks including but not limited to bleeding, infection, injury to tendon/nerve/vessel, decreased hand function, stiffness, RSD, no change or worsening of symptoms. I discussed the possible use of assistants and their participation in the case. Patient stated understanding and signed the consent form wishing to proceed.
--- NOTE | 2023-07-03 07:06 | P.OP_ITS ---
Procedure Note - Detailed Date of Procedure 07/03/23 Pre-op Diagnosis right carpal tunnel syndrome Post-op Diagnosis Same Procedure Performed right ectr Surgeon Sonny Edwards MD Tool And Die Maker/Designer Tiki Mojica PA-C Anesthesia MAC Description of Procedure INFORMED CONSENT: The patient was seen and examined and marked in the pre-op area.? The patient signed the consent form. PROCEDURE IN DETAIL:The patient taken back to OR on the stretcher in supine position. Time out performed with anesthesia, surgeon and staff agreeing on patient's name site and surgery to be performed SCDs were placed on the lower extremities and inflated. A tourniquet was placed on {right} upper extremity and antibiotics given IV After anesthesia administered sedation I injected {5}cc 1%lido with epi and 0.5% marcaine plain at the operative site The?{right upper extremity}?was prepped and draped in sterile fashion the??{right upper extremity} was? exsanguinated with Esmarch bandage and tourniquet inflated to 250mmHg I made a transverse incision in the {right} volar distal wrist crease through skin and dermis with 15 blade scalpel.? Littler scissors spread down to antebrachial fascia. A small incision was made in antebrachial fascia allowing access to Carpal tunnel. I proceeded with sequential dilation staying in line with the ring finger and hugging the hook of the hamate.? I then used the synovial elevator to free any adhesions from the underside of the transverse carpal ligament. Next I was able to insert the Microaire endoscopic carpal tunnel device with direct visualization of the transverse fibers on the monitor and proceeded with complete segmental retrograde release of the ligament in its entirety.? I irrigated with normal saline and closed with 4-0 monocryl for dermis and subcuticular closure. A dressing of Dermabond, 4x4, chris, and a volar splint was applied for patient safety, security, and comfort and secured with an solitario bandage after the tourniquet was let down noting the hand was warm and well perfused. The patient was then awaken from anesthesia and transferred to the recovery room in stable condition.? Complications - none EBL- 0cc Disposition - home in stable conditions Tiki Allred PA-C was essential for positioning, retraction, closure, and hollie ssing placement [facility] [place] Surgery - Charge Forward: Surgery Billing ([id number] for tiki)
--- NOTE | 2023-07-03 10:33 | WPDANESEPPF ---
Anes - Initial Pre Proc Eval Procedure: Operation Date: 07/03/23 12:00 Proposed Procedures p Right Endoscopic Carpal Tunnel Release, Possible Open - Sonny Edwards MD Date/Time: 07/03/23 10:33 Surgeon: Sonny Edwards MD Pre Op Diagnosis: bilateral carpal tunnel syndrome Patient Data Age: 68 Gender: F Height: 1.65 m Weight: 80.75 kg Allergies Allergy/AdvReac Type Severity Reaction Status Date / Time adhesive AdvReac Unknown Rash Verified 06/26/23 13:07 latex AdvReac Unknown Rash Verified 06/26/23 13:07 Home Medications Medication Instructions Recorded Confirmed Type ascorbate calcium (vitamin C) 500 500 mg PO DAILY 06/29/22 06/26/23 History mg tablet azelastine 137 mcg (0.1 %) nasal 2 spray intranasal Q12H 06/29/22 06/26/23 History spray aerosol calcium carbonate 500 mg calcium 500 mg PO DAILY 06/29/22 06/26/23 History (1,250 mg) chewable tablet (Calcium 500) cetirizine 10 mg capsule (Zyrtec) 10 mg PO DAILY PRN Allergy Symptoms 06/29/22 06/26/23 History cholecalciferol (vitamin D3) 50 50 mcg PO DAILY 06/29/22 06/26/23 History mcg (2,000 unit) capsule losartan 100 mg tablet 100 mg PO DAILY 06/29/22 06/26/23 History omeprazole 40 mg capsule,delayed 40 mg PO BID 06/29/22 06/26/23 History release rosuvastatin 10 mg tablet 10 mg PO DAILY 06/29/22 06/26/23 History valacyclovir 500 mg tablet 500 mg PO DAILY 06/29/22 06/26/23 History ashwagandha root extract 300 mg 300 mg PO DAILY 04/16/23 06/26/23 History capsule boswellia 2 tablet PO DAILY 04/16/23 06/26/23 History tolterodine 2 mg capsule,extended 2 mg PO DAILY #90 caps 04/22/23 06/26/23 Rx release 24 hr (Detrol LA) [id number]-[id number] 8 mg-folic 400 1 tablet PO DAILY 06/26/23 06/26/23 History mcg-K 50 mcg-lutein 300 mcg tablet (Centrum Silver Women) tramadol 50 mg tablet 50 mg PO Q6H PRN pain #8 tabs 07/03/23 Rx Patient hx anesthesia problems: none Family hx anesthesia problems: none Results Review: All pre-operative results and documents have been reviewed as part of the pre-operative evaluation. [facility] Past Medical History Medical History Acid reflux Anxiety Basal cell carcinoma of skin of face 2007, 2016 History of Mohs micrographic surgery for skin cancer 2007 face, 2016 face, 2019 right upper arm Hypertension IBS (irritable bowel syndrome) Incontinence 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 Thickened endometrium Surgical History Surgical History History of arthroscopic knee surgery History of colonoscopy History of esophagogastroduodenoscopy (EGD) History of Mohs surgery for squamous cell carcinoma in situ of skin S/P dilation and curettage Status post creation of urethral sling by suprapubic approach Family History Family History Mother Hypertension Depression Fibrotic lung diseases Father Hypertension Heart disease Crohn's disease Sibling Multiple sclerosis Social History Social History Smoking status: Never smoker Alcohol intake: current Drinks per week: 6 Alcohol use details: beer and wine Substance use: never Lack of Transportation: No Lack of Food: Never True Current Housing: I Have Housing Concerned About Future Housing: No Difficulty Paying Gas/Electric Bills: No Difficulty Paying for Meds: No Currently Unemployed: YES Living arrangements: with family Occupation/Education: retired Gender identity (if verbalized by the patient): Female Sexual Orientation (if Verbalized by the Patient): Straight or Heterosexual Spiritual care concerns: No Agree to blood products: Yes Anes - Eval Final PreProcedure Day of Procedure 07/03/23 10:33 Patient weight: overweight Heart: regular rate and rhythm Lungs: clear to a
[2023-07-03 10:37] VITALS: BP 148/77; PULSE 70; RESP 14; TEMP 36.6; O2SAT 100; BMI 30.9
[2023-07-03] MEDS: LACTATED RINGERS 1,000 ML 30 ML IV CONT (10:37)
[2023-07-03] MEDS: ceFAZolin 2 GM/D5W 50 ML 2 GM/50 ML BAG IVPB (11:11)
[2023-07-03] MEDS: LIDO 1%/EPINEPHRINE 1:100,000 20 ML VIAL 10 ML INFILTRATE (11:13)
[2023-07-03] MEDS: BUPivacaine HCL 0.5% 10 ML AMP INFILTRATE (11:14)
[2023-07-03 11:23] VITALS: BP 109/65; PULSE 86; RESP 14
[2023-07-03 11:50] VITALS: BP 122/61; PULSE 60; RESP 20
[2023-07-03 12:20] VITALS: BP 118/70; PULSE 60; RESP 20
[2023-07-03 12:30] VITALS: BP 118/75; PULSE 70; RESP 20
== END 2023-07-03 12:35 | disposition home or self-care (01) ==
PROVIDERS: PCP Internal Medicine; Visit Provider Plastic Surgery
PROC: 01N54ZZ Release Median Nerve, Percutaneous Endoscopic Approach (ICD-10-PCS; CPT 29848; principal; 2023-07-03 12:00)
DX: G56.01 Carpal tunnel syndrome, right upper limb (principal); K21.9 Gastro-esophageal reflux disease without esophagitis; I10 Essential (primary) hypertension; F41.9 Anxiety disorder, unspecified; K58.9 Irritable bowel syndrome, unspecified; R32 Unspecified urinary incontinence; Z79.891 Long term (current) use of opiate analgesic; Z98.890 Other specified postprocedural states; Z85.828 Personal history of other malignant neoplasm of skin; Z82.49 Family history of ischemic heart disease and other diseases of the circulatory system
CPT/HCPCS: 29848; J0690; J1100; J2250; J2405; J2704; J3010; J7120

== ENCOUNTER 2023-07-18 00:21 | Day surgery (SDC) | payer MEDICARE, SELFPAY ==
--- NOTE | 2023-07-15 10:24 | PC.NURSE ---
Report to the Outpatient Waiting Room, entrance under the green pavilion located off [facility], at time _0615 on date _07/18/23 . Planned Procedure Time: ___814 . Time changes happen often and if your time is changed the preop area will call you the afternoon before. - You and your visitor will be asked to self-screen and do not enter if you have any COVID symptoms. - A mask is optional within the hospital at this time. NOTHING TO EAT OR DRINK 8 HOURS PRIOR TO SURGERY PER DR CINTRON Take the following medications with a SIP of water the morning of surgery: NONE DO NOT STOP ANY OF YOUR OTHER PRESCRIPTION MEDICATIONS PRIOR TO SURGERY ?EXCEPT THE FOLLOWING Medications to discontinue per physician ALL VITAMINS AND SUPPLEMENTS 3 DAYS PRE OP .LAST DOSE 07/14/23 Please no make-up, nail vietnamese, hairspray, perfume, deodorant, or body powder the day of surgery. No jewelry (including any body piercings) or valuables the day of surgery, leave them at home. Please take a shower or bath the night before, or the morning of, surgery with an antibacterial soap. Wear comfortable, loose fitting clothing. Children are encouraged to wear pajamas. - Jewelry must be removed prior to entering the operating room. Rings and piercings that are not removed may be cut off. - The hospital will not accept responsibility for valuables. - Please leave all valuables, including medications, at home the day of surgery. If you are going home after surgery, a licensed local company hazmat driver must drive you home. - NO public transportation without another adult if you receive anesthesia. - We recommend that an adult stay with you for 24 hours following discharge. - We also recommend that you do not drive, make important decision, drink alcoholic beverages, or take any drugs that were not prescribed by your health care provider for at least 24 hours after your discharge time. For Pediatric surgeries, we recommend two adults accompany the child home. Follow any additional instructions given to you from your surgeon. If you or anyone in your household have experienced Covid symptoms in the past week, please notify your surgeon or the nurse liaison at the phone number below for possible testing. Telephone instructions given to ___PT and asked if any additional questions and then verbalized understanding. Patient advised to call surgeon office or pre surgery nurse liaison [phone] if any additional questions.
[2023-07-15 10:30] VITALS: BMI 29.6
[2023-07-18 06:25] VITALS: BP 135/77; PULSE 67; RESP 16; TEMP 36.8; O2SAT 99
[2023-07-18] MEDS: LACTATED RINGERS 1,000 ML 30 ML IV CONT (06:43)
--- NOTE | 2023-07-18 07:01 | WPDHPUPDATE1 ---
History and Physical Update Update Date/Time: 07/18/23 07:01 Patient seen and examined in pre-operative holding area. No interval change in medical history or symptoms. Patient recalls previous discussion of benefits and alternatives to procedure. Continues to desire to proceed with left endoscopic possible open carpal tunnel release. Reviewed procedure, post-op expectations and risks including but not limited to bleeding, infection, injury to tendon/nerve/vessel, decreased hand function, stiffness, RSD, no change or worsening of symptoms. I discussed the possible use of assistants and their participation in the case. Patient stated understanding and signed the consent form wishing to proceed.
--- NOTE | 2023-07-18 07:01 | W.PM.PROC2 ---
Procedure Note - Detailed Date of Procedure 07/18/23 Pre-op Diagnosis left carpal tunnel syndrome Post-op Diagnosis Same Procedure Performed left ectr Surgeon Sonny Edwadrs MD Holistic Pulser Tiki Allred PA-C Anesthesia MAC Description of Procedure INFORMED CONSENT: The patient was seen and examined and marked in the pre-op area.? The patient signed the consent form. PROCEDURE IN DETAIL:The patient taken back to OR on the stretcher in supine position. Time out performed with anesthesia, surgeon and staff agreeing on patient's name site and surgery to be performed SCDs were placed on the lower extremities and inflated. A tourniquet was placed on {left} upper extremity and antibiotics given IV After anesthesia administered sedation I injected {5}cc 1%lido with epi and 0.5% marcaine plain at the operative site The?{left upper extremity}?was prepped and draped in sterile fashion the??{left upper extremity} was? exsanguinated with Esmarch bandage and tourniquet inflated to 250mmHg I made a transverse incision in the {left} volar distal wrist crease through skin and dermis with 15 blade scalpel.? Littler scissors spread down to antebrachial fascia. A small incision was made in antebrachial fascia allowing access to Carpal tunnel. I proceeded with sequential dilation staying in line with the ring finger and hugging the hook of the hamate.? I then used the synovial elevator to free any adhesions from the underside of the transverse carpal ligament. Next I was able to insert the Microaire endoscopic carpal tunnel device with direct visualization of the transverse fibers on the monitor and proceeded with complete segmental retrograde release of the ligament in its entirety.? I irrigated with normal saline and closed with 4-0 monocryl for dermis and subcuticular closure. A dressing of Dermabond, 4x4, chris, and a volar splint was applied for patient safety, security, and comfort and secured with an solitario bandage after the tourniquet was let down noting the hand was warm and well perfused. The patient was then awaken from anesthesia and transferred to the recovery room in stable condition.? Complications - none EBL- 0cc Disposition - home in stable conditions Tiki Allred PA-C was essential for positioniing, retraction, closure and dressing placement [facility] [place] Surgery - Charge Forward: Surgery Billing ([id number] for tiki)
--- NOTE | 2023-07-18 07:53 | WPDANESEPPF ---
Anes - Initial Pre Proc Eval Procedure: Operation Date: 07/18/23 08:15 Proposed Procedures p Left Endoscopic Carpal Tunnel Release, Possible Open - Sonny Edwards MD Date/Time: 07/18/23 07:53 Surgeon: Sonny Edwards MD Pre Op Diagnosis: left carpal tunnel syndrome Patient Data Age: 68 Gender: F Height: 1.65 m Weight: 84 kg Last Vital Signs Temp 98.3 F 07/18/23 06:25 Pulse 67 07/18/23 06:25 Resp 16 07/18/23 06:25 BP 135/77 07/18/23 06:25 Pulse Ox 99 07/18/23 06:25 O2 Del Method Room Air 07/18/23 06:25 Allergies Allergy/AdvReac Type Severity Reaction Status Date / Time adhesive AdvReac Unknown Rash Verified 07/18/23 06:17 latex AdvReac Unknown Rash Verified 07/18/23 06:17 Home Medications Medication Instructions Recorded Confirmed Type azelastine 137 mcg (0.1 %) nasal 2 spray intranasal Q12H 06/29/22 07/15/23 History spray aerosol calcium carbonate 500 mg calcium 500 mg PO DAILY 06/29/22 07/15/23 History (1,250 mg) chewable tablet (Calcium 500) cetirizine 10 mg capsule (Zyrtec) 10 mg PO DAILY PRN Allergy Symptoms 06/29/22 07/15/23 History losartan 100 mg tablet 100 mg PO DAILY 06/29/22 07/15/23 History omeprazole 40 mg capsule,delayed 40 mg PO BID 06/29/22 07/15/23 History release rosuvastatin 10 mg tablet 10 mg PO HS 06/29/22 07/15/23 History valacyclovir 500 mg tablet 500 mg PO DAILY 06/29/22 07/15/23 History ashwagandha root extract 300 mg 300 mg PO DAILY 04/16/23 07/15/23 History capsule boswellia 2 tablet PO DAILY 04/16/23 07/15/23 History tolterodine 2 mg capsule,extended 2 mg PO DAILY #90 caps 04/22/23 07/15/23 Rx release 24 hr (Detrol LA) zgrbwsaj-puhg-ksig 8 mg-folic 400 1 tablet PO DAILY 06/26/23 07/15/23 History mcg-K 50 mcg-lutein 300 mcg tablet (Centrum Silver Women) tramadol 50 mg tablet 50 mg PO Q6H PRN pain #8 tabs 07/18/23 Rx Patient hx anesthesia problems: none Family hx anesthesia problems: none Results Review: All pre-operative results and documents have been reviewed as part of the pre-operative evaluation. [facility] Past Medical History Medical History Acid reflux Anxiety Basal cell carcinoma of skin of face 2007, 2016 History of Mohs micrographic surgery for skin cancer 2007 face, 2016 face, 2020 right upper arm Hypertension IBS (irritable bowel syndrome) Incontinence 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 Thickened endometrium Surgical History Surgical History History of arthroscopic knee surgery History of colonoscopy History of esophagogastroduodenoscopy (EGD) History of Mohs surgery for squamous cell carcinoma in situ of skin S/P dilation and curettage Status post creation of urethral sling by suprapubic approach Family History Family History Mother Hypertension Depression Fibrotic lung diseases Father Hypertension Heart disease Crohn's disease Sibling Multiple sclerosis Social History Social History Smoking status: Never smoker Alcohol intake: current Drinks per week: 6 Alcohol use details: beer and wine Substance use: never Lack of Transportation: No Lack of Food: Never True Current Housing: I Have Housing Concerned About Future Housing: No Difficulty Paying Gas/Electric Bills: No Difficulty Paying for Meds: No Currently Unemployed: YES Living arrangements: with family Occupation/Education: retired Gender identity (if verbalized by the patient): Female Sexual Orientation (if Verbalized by the Patient): Straight or Heterosexual Spiritual care concerns: No Agree to blood products: Yes Anes - Eval Final PreProcedure Day of Procedure 07/18/23 07:53 Patient weight: normal Heart: regular rate and rhythm Lungs: clear to au
[2023-07-18] MEDS: LIDO 1%/EPINEPHRINE 1:100,000 50 ML VIAL INFILTRATE (07:57)
[2023-07-18] MEDS: ceFAZolin 2 GM/D5W 50 ML 2 GM/50 ML BAG IVPB (08:04)
[2023-07-18 08:24] VITALS: BP 115/55; PULSE 75; RESP 16; O2SAT 95
[2023-07-18 08:50] VITALS: BP 118/66; PULSE 74; RESP 16; O2SAT 95
[2023-07-18 09:15] VITALS: BP 128/59; PULSE 66; RESP 14
== END 2023-07-18 09:26 | disposition home or self-care (01) ==
PROVIDERS: PCP Internal Medicine; Visit Provider Plastic Surgery
PROC: 01N54ZZ Release Median Nerve, Percutaneous Endoscopic Approach (ICD-10-PCS; CPT 29848; principal; 2023-07-18 08:15)
DX: G56.02 Carpal tunnel syndrome, left upper limb (principal); I10 Essential (primary) hypertension; K21.9 Gastro-esophageal reflux disease without esophagitis; F41.9 Anxiety disorder, unspecified; R32 Unspecified urinary incontinence; Z79.891 Long term (current) use of opiate analgesic; Z98.890 Other specified postprocedural states; Z85.828 Personal history of other malignant neoplasm of skin; Z82.49 Family history of ischemic heart disease and other diseases of the circulatory system
CPT/HCPCS: 29848; J0690; J2250; J2704; J3010; J7120

== ENCOUNTER 2024-04-14 11:21 | Outpatient (CLI) | payer MEDICARE, SELFPAY ==
--- NOTE | ~2024-04-14 | XR_ITS ---
EXAMINATION: XR chest 2V 04/14/2024 11:42 INDICATION: Cough for 3 weeks PROCEDURE: 2 view chest COMPARISON: No prior studies for comparison. FINDINGS: The lungs are clear. The cardiomediastinal silhouette is within normal limits. There are no pleural effusions. There is no pneumothorax suspected. IMPRESSION: 1: NO ACUTE CARDIOPULMONARY DISEASE. Reviewed, dictated and finalized at location [facility]. [employer]
[2024-04-14 11:47] LABS: Hematocrit 35.6 % (35.0-42.0); Hemoglobin 11.6 g/dL (11.7-13.8); Mean Corpuscular HGB Conc 32.6 g/dL (32-36); Mean Corpuscular Hemoglobin 31.4 pg (27.0-31.0); Mean Corpuscular Volume 96.5 fL (78.0-102.0); Mean Platelet Volume 9.2 fl (9.2-11.8); Platelet Count Result 274 K/mm3 (150-420); Red Blood Count 3.69 M/mm3 (4.20-5.40); Red Cell Distribution Width 12.2 % (11.6-14.4); White Blood Count 8.2 K/mm3 (4.8-10.8)
--- OUTSIDE RECORDS SUMMARY | 2024-04-21 12:16 | XMS_ITS | Clinical Summary ---
Author Organization [facility] Address [address] [place] [address] Care Team Providers Care Stave Mill Hand Name Role Phone Unavailable Primary Care Provider Unavailabl e Source Comments [facility],non-owned Affiliates and Associated Physician Practices is amultiple site organization consisting of ambulatory clinics and hospital sitesin [place], [place], [place] and [place]. This disclosure is being madepursuant to the Care Everywhere program and may not contain all information available regarding this patient. Last updated 17.[facility] Encounters Date Type Department Care Team Description 01/27/2024 Lab Requisition [facility] - DermPath Lab [address] [place] [phone] Andree Flores MD from Last 3 Months Social History Tobacco Use Types Packs/Day Years Used Date Smoking Tobacco: Never Assessed Sex and Gender Information Value Date Recorded Sex Assigned at Not on file Gender Identity Not on file Sexual Orientation Not on file Plan of Treatment Health Maintenance Due Date Last Done Comments BONE DENSITY TESTING 1955 COLOGUARD (AGES 45-75) - COL ON CA SCREENING 1955 COLON MONITORING 1955 COLONOSCOPY - COLON CA SCREENING 1955 CT COLONOGRAPHY - COLON CA SCREENING 1955 Colorectal Cancer Screening 1955 FIT - COLON CA SCREENING 1955 FLEX SIG - COLON CA SCREENING 1955 LIPID TESTING 1955 MAMMOGRAM 1955 MEDICARE AWV ? 12 MONTHS 1955 HEPATITIS C SCREENING 02/26/1973 DTAP/TDAP/TD VACCINES (1 - Tdap) 1974 ZOSTER VACCINE (1 of 2) 2005 PNEUMOCOCCAL VACCINE 50+ (1 of 1 - PCV) 2020 COVID-19 VACCINE ( - 2023-2 5 season) 2023 INFLUENZA VACCINE (#1) 2023 DEPRESSION SCREENING 04/08/2024 Respiratory Syncytial Virus (RSV) Vaccine Pt: or over 60 yrs (1 - 1-dose 75+ series) 2030 HEPATITIS B VACCINE Aged Out No longe r eligible based on patient's age to complete this topic HIB VACCINE Aged Out No longer eligi ble based on patient's age to complete this topic HPV VACCINE Aged Out No longer eligi ble based on patient's age to complete this topic MENINGOCOCCAL VACCINE Aged Out No ignacia pramod eligible based on patient's age to complete this topic Procedures Procedure Name Priority Date/Time Associated Diagnosis Comments DERMATOPATHOLOGY Routine 01/27/2024 3:53 PM CDT from Last 3 Months Results * DERMATOPATHOLOGY (01/27/2024 3:53 PM CDT) Case Report Dermatopathology Report ? Case: [id number] ? Authorizing Provider: ??Andree Flores MD ?Collected: ? 01/27/2024 03:53 PM ? Ordering Location: ? [facility] - ??Received: ?01/28/2024 12:12 PM ? DermPath Lab ? Pathologist: ? Mirela Ojeda MD ? Specimens: ?? A) - Skin, left superior chest ? B) - Skin, left lower back ? 12:30 PM CDT DERMATOPATHOLOGY LABORATORY Final Diagnosis Specimen A. SKIN, left superior chest: HYPERPLASTIC (HYPERTROPHIC) ACTINIC KERATOSIS (L57.0) Specimen B. SKIN, left lower back: BASAL CELL CARCINOMA, SUPERFICIAL MULTIFOCAL (C44.519) 12:30 PM CDT DERMATOPATHOLOGY LABORATORY Clinical History A: AK vs SCC, pink papule B: R/O SCC 12:30 PM CDT DERMATOPATHOLOGY LABORATORY Gross Description Specimen A: Received is one formalin filled container labeled with the patient's name and designated left superior chest. The specimen consists of a shave biopsy measuring 4x4x1 mm. Jar 0. Specimen B: Received is one formalin filled container labeled with the patient's name and designated left lower back. The specimen consists of a shave biopsy measuring 5x4x1 mm. Jar 0. 12:30 PM CDT DERMATOPATHOLOGY LABORATORY Microscopic Description Specimen A. SKIN, left superior chest: There is hyperkeratosis alternating with parakeratosis. There is epidermal hyperplasia with disorderly maturation of keratinocytes with nuclear pleomorphism confined to the lower half of the epidermis. Specimen B. SKIN, left lower back: Attached to the undersurface of the epidermis, there are small aggregates of basaloid cells with a high nuclear to cytoplasmic ratio and peripheral palisading. 12:30 PM CDT DERMATOPATHOLOGY LABORATORY Disclaimer An external and internal positive and negative controls are appropriate for the histochemical, immunohistochemical and immunofluorescence stain(s) in this case (if any), except where stated explicitly. The performance characteristics of the stain(s) cited in this report were developed and its performance characteristic determined by the Dermatopathology Laboratory at [facility], directed by Dr. Angela Everett. These tests need not be, and therefore are not, approved by the [place] Food and Drug Administration. The tests are used for clinical purposes. Billing Codes Specimen Charges Stain Charges 79394 10474 1 1 4 12:30 PM CDT DERMATOPATHOLOGY LABORATORY Embedded Images 12:30 PM CDT DERMATOPATHOLOGY LABORATORY Pathology/Cytology TISSUE SPECIMEN FROM SKIN / Unknown 01/27/2024 3:53 PM CDT 01/28/2024 12:12 PM CDT Miscellaneous samples (specimen) TISSUE SPECIMEN FROM SKIN / Unknown 01/27/2024 3:53 PM CDT 01/28/2024 12:12 PM CDT Andree Flores MD LAB - PATHOLOGY/CYTO LOGY ORDERABLES DERMATOPATHOLOGY LABORATORY [facility] - Department of Dermatology [facility] Medicine [address] [place] [address] [phone] from Last 3 Months
--- OUTSIDE RECORDS SUMMARY | 2024-04-21 12:16 | XMS_ITS | Referral Summary ---
Author Organization [facility] Address [address] [facility] [place] [address] Care Team Providers Care Damaged Freight Inspector Name Role Phone Unavailable Primary Care Provider Unavailabl e Source Comments [facility],non-owned Affiliates and Associated Physician Practices is amultiple site organization consisting of ambulatory clinics and hospital sitesin [place], [place], [place] and [place]. This disclosure is being madepursuant to the Care Everywhere program and may not contain all information available regarding this patient. Last updated 17.[facility] Encounters Date Type Department Care Team Description 01/27/2024 Lab Requisition [facility] - DermPath Lab [address] [facility] [place] [phone] Andree Flores MD from Last 3 Months Social History Tobacco Use Types Packs/Day Years Used Date Smoking Tobacco: Never Assessed Sex and Gender Information Value Date Recorded Sex Assigned at Not on file Gender Identity Not on file Sexual Orientation Not on file Plan of Treatment Not on file Procedures Procedure Name Priority Date/Time Associated Diagnosis Comments DERMATOPATHOLOGY Routine 01/27/2024 3:53 PM CDT from Last 3 Months Results * DERMATOPATHOLOGY (01/27/2024 3:53 PM CDT) Case Report Dermatopathology Report ? Case: [id number] ? Authorizing Provider: ??Andree Flores MD ?Collected: ? 01/27/2024 03:53 PM ? Ordering Location: ? [facility] - ??Received: ?01/28/2024 12:12 PM ? DermPath Lab ? Pathologist: ? Mirela Ojeda MD ? Specimens: ?? A) - Skin, left superior chest ? B) - Skin, left lower back ? 4 12:30 PM CDT DERMATOPATHOLOGY LABORATORY Final Diagnosis Specimen A. SKIN, left superior chest: HYPERPLASTIC (HYPERTROPHIC) ACTINIC KERATOSIS (L57.0) Specimen B. SKIN, left lower back: BASAL CELL CARCINOMA, SUPERFICIAL MULTIFOCAL (C44.519) 4 12:30 PM CDT DERMATOPATHOLOGY LABORATORY Clinical History [...] characteristic determined by the Dermatopathology Laboratory at [facility], directed by Dr. Angela Everett. These tests need not be, and therefore are not, approved by the [place] Food and Drug Administration. The tests are used for clinical purposes. Billing Codes Specimen Charges Stain Charges 42560 13328 1 1 12:30 PM CDT DERMATOPATHOLOGY LABORATORY Embedded Images 12:30 PM CDT DERMATOPATHOLOGY LABORATORY Pathology/Cytology TISSUE SPECIMEN FROM SKIN / Unknown 01/27/2024 3:53 PM CDT 01/28/2024 12:12 PM CDT Miscellaneous samples (specimen) TISSUE SPECIMEN FROM SKIN / Unknown 01/27/2024 3:53 PM CDT 01/28/2024 12:12 PM CDT Andree Flores MD LAB - PATHOLOGY/CYTO LOGY ORDERABLES DERMATOPATHOLOGY LABORATORY [facility] - Department of Dermatology [address], [address] [phone] from Last 3 Months Toshia Desouza Personal/Famil y Self 1955 [address] [place] [address]
--- OUTSIDE RECORDS SUMMARY | 2024-04-21 12:16 | XMS_ITS | Encounter Summary ---
Author Organization [facility] Address [address] [place] [address] Care Team Providers Care Chronometer Assembler And Adjuster Name Role Phone Unavailable Primary Care Provider Unavailabl e Encounter Details Date Type Department Care Team (Late st Contact Info) Description 01/27/2024 Lab Requisition [facility] - DermPath Lab [address] [facility], [place] [address] Andree Flores MD [address] [facility] [address] [place] [address] Social History Tobacco Use Types Packs/Day Years Used Date Smoking Tobacco: Never Assessed Sex and Gender Information Value Date Recorded Sex Assigned at Not on file Gender Identity Not on file Sexual Orientation Not on file documented as of this encounter Plan of Treatment Not on file documented as of this encounter Procedures Procedure Name Priority Date/Time Associated Diagnosis Comments DERMATOPATHOLOGY Routine 01/27/2024 3:53 PM CDT documented in this encounter Results * DERMATOPATHOLOGY (01/27/2024 3:53 PM CDT) Case Report Dermatopathology Report ? Case: [id number] ? Authorizing Provider: ??Andree Flores MD ?Collected: [...] characteristic determined by the Dermatopathology Laboratory at [facility], directed by Dr. Angela Everett. These tests need not be, and therefore are not, approved by the [place] Food and Drug Administration. The tests are used for clinical purposes. Billing Codes Specimen Charges Stain Charges 69912 88297 1 1 12:30 PM CDT DERMATOPATHOLOGY LABORATORY Embedded Images 12:30 PM CDT DERMATOPATHOLOGY LABORATORY Pathology/Cytology TISSUE SPECIMEN FROM SKIN / Unknown 01/27/2024 3:53 PM CDT 01/28/2024 12:12 PM CDT Miscellaneous samples (specimen) TISSUE SPECIMEN FROM SKIN / Unknown 01/27/2024 3:53 PM CDT 01/28/2024 12:12 PM CDT Andree Flores MD LAB - PATHOLOGY/CYTO LOGY ORDERABLES DERMATOPATHOLOGY LABORATORY [facility] - Department of Dermatology [address], [address] [phone] documented in this encounter Visit Diagnoses Not on filedocumented in this encounter
--- OUTSIDE RECORDS SUMMARY | 2024-04-21 12:16 | XMS_ITS | Patient Health Summary ---
Author Organization [facility] Address [address] [place] [address] Care Team Providers Care Public Aid Eligibility Assistant Name Role Phone Unavailable Primary Care Provider Unavailabl e Note from [facility],non-owned Affiliates and Associated Physician Practices is amultiple site organization consisting of ambulatory clinics and hospital sitesin [place], [place], [place] and [place]. This disclosure is being madepursuant to the Care Everywhere program and may not contain all information available regarding this patient. Last updated 17.[facility] Social History Tobacco Use Types Packs/Day Years Used Date Smoking Tobacco: Never Assessed Sex and Gender Information Value Date Recorded Sex Assigned at Not on file Gender Identity Not on file Sexual Orientation Not on file Procedures * DERMATOPATHOLOGY(Performed 01/27/2024) * DERMATOPATHOLOGY(Performed 12/19/2022) Results * DERMATOPATHOLOGY (01/27/2024 3:53 PM CDT) Only the most recent of2 resultswithin the time period is included. Case Report Dermatopathology Report ? Case: [id number] ? Authorizing Provider: ??Andree Flores MD ?Collected: [...] characteristic determined by the Dermatopathology Laboratory at [facility], directed by Dr. Angela Everett. These tests need not be, and therefore are not, approved by the [place] Food and Drug Administration. The tests are used for clinical purposes. Billing Codes Specimen Charges Stain Charges 89690 38002 1 1 12:30 PM CDT DERMATOPATHOLOGY LABORATORY Embedded Images 12:30 PM CDT DERMATOPATHOLOGY LABORATORY Pathology/Cytology TISSUE SPECIMEN FROM SKIN / Unknown 01/27/2024 3:53 PM CDT 01/28/2024 12:12 PM CDT Miscellaneous samples (specimen) TISSUE SPECIMEN FROM SKIN / Unknown 01/27/2024 3:53 PM CDT 01/28/2024 12:12 PM CDT Andree Flores MD LAB - PATHOLOGY/CYTO LOGY ORDERABLES DERMATOPATHOLOGY LABORATORY [facility] - Department of Dermatology [address], [address] [phone]
--- OUTSIDE RECORDS SUMMARY | 2024-04-21 12:16 | XMS_ITS | Encounter Summary ---
Author Organization [facility] Address [address] [facility] [place] [address] Care Team Providers Care Marine Extension Agent Name Role Phone Unavailable Primary Care Provider Unavailabl e Encounter Details Date Type Department Care Team (Late st Contact Info) Description 12/20/2022 Lab Requisition [facility] - DermPath Lab [address] [facility] [place] [address] Duyen Blackwell DO [address] [facility] 3 [place] [address] Social History Tobacco Use Types Packs/Day Years Used Date Smoking Tobacco: Never Assessed Sex and Gender Information Value Date Recorded Sex Assigned at Not on file Gender Identity Not on file Sexual Orientation Not on file documented as of this encounter Plan of Treatment Not on file documented as of this encounter Visit Diagnoses Not on filedocumented in this encounter
--- OUTSIDE RECORDS SUMMARY | 2024-04-21 12:16 | XMS_ITS | Encounter Summary ---
Author Organization [facility] Address [address] [facility] [place] [address] Care Team Providers Care Material Requisitioner Name Role Phone Unavailable Primary Care Provider Unavailabl e Encounter Details Date Type Department Care Team (Late st Contact Info) Description 12/20/2022 Lab Requisition [facility] - DermPath Lab [address] [facility] [place] [address] Andree Flores MD [address] [facility] [address] [place] [address] Social History Tobacco Use Types Packs/Day Years Used Date Smoking Tobacco: Never Assessed Sex and Gender Information Value Date Recorded Sex Assigned at Not on file Gender Identity Not on file Sexual Orientation Not on file documented as of this encounter Plan of Treatment Not on file documented as of this encounter Procedures Procedure Name Priority Date/Time Associated Diagnosis Comments DERMATOPATHOLOGY Routine 12/19/2022 11:0 7 AM CDT documented in this encounter Results * DERMATOPATHOLOGY (12/19/2022 11:07 AM CDT) Case Report Dermatopathology Report ? Case: [id number] ? Authorizing Provider: ??Andree Flores MD ?Collected: ? 12/19/2022 11:07 AM ? Ordering Location: ? [facility] ? Received: ?12/20/2022 12:42 PM ? Pathologist: ? Shakira Everett MD ? Specimens: ?? A) - Skin, left brow ? B) - Skin, mid back ? 3 1:49 PM CDT DERMATOPATHOLOGY LABORATORY Final Diagnosis Specimen A. 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 SKIN, mid back: LENTIGINOUS MELANOCYTIC NEVUS, JUNCTIONAL TYPE (D22.5) POST-INFLAMMATORY PIGMENT ALTERATION (L81.9) 3 1:49 PM T DERMATOPATHOLOGY LABORATORY Clinical History A: R/O AK vs BCC; [place] Papule B: R/O Melanoma, Nevus, Irregular Brown Papule 3 1:49 PM CDT DERMATOPATHOLOGY LABORATORY Gross Description Specimen A: Received is one formalin filled container labeled with the patient's name and designated left brow. The specimen consists of a shave biopsy measuring 3x2x1 mm. Jar 0. Specimen B: Received is one formalin filled container labeled with the patient's name and designated mid back. The specimen consists of a shave biopsy measuring 9x5x1 mm. Jar 0. 3 1:49 PM CDT DERMATOPATHOLOGY LABORATORY Microscopic Description Specimen A. SKIN, left brow: Sections show non-specific changes, including solar elastosis and vascular ectasia. There is no evidence of epithelial dysplasia or malignancy in multiple deeper sections examined. Specimen B. SKIN, mid back: This is a junctional nevus. There is a lentiginous proliferation of melanocytes between nevus nests of cells along the dermal-epidermal junction. There is underlying lamellar fibroplasia of the papillary dermis. (Junctional Corey's Nevus) Sections show abundant melanin within melanophages around the superficial vascular plexus. 3 1:49 PM CDT DERMATOPATHOLOGY LABORATORY Disclaimer An external and internal positive and negative controls are appropriate for the histochemical, immunohistochemical and immunofluorescence stain(s) in this case (if any), except where stated explicitly. The performance characteristics of the stain(s) cited in this report were developed and its performance characteristic determined by the Dermatopathology Laboratory at [facility], directed by Dr. Anglea Everett. These tests need not be, and therefore are not, approved by the [place] Food and Drug Administration. The tests are used for clinical purposes. Billing Codes Specimen Charges Stain Charges 47997 90458 1 1 3 1:49 PM CDT DERMATOPATHOLOGY LABORATORY Embedded Images 3 1:49 PM CDT DERMATOPATHOLOGY LABORATORY Pathology/Cytology TISSUE SPECIMEN FROM SKIN / Unknown 12/19/2022 11:07 AM CDT 12/20/2022 12:42 PM CDT Miscellaneous samples (specimen) TISSUE SPECIMEN FROM SKIN / Unknown 12/19/2022 11:07 AM CDT 12/20/2022 12:42 PM CDT Andree Flores MD LAB - PATHOLOGY/CYTO LOGY ORDERABLES DERMATOPATHOLOGY LABORATORY [facility] - Department of Dermatology [address], [address] [phone] documented in this encounter Visit Diagnoses Not on filedocumented in this encounter
--- OUTSIDE RECORDS SUMMARY | 2024-04-21 12:17 | XMS_ITS | Encounter Summary ---
Author Organization [facility] Address [address] [place] [address] Care Team Providers Care Soakers Supervisor Name Role Phone Paul Jurado MD Primary Care Provider Encounter Details Date Type Department Care Team (Latest Contact Info) Description 08/06/2022 12:25 PM CDT - 08/06/2022 11:59 PM CDT Hospital Encounter [facility] [address] [place] [address] [phone] Discharge Disposition: Discharge to home or self care Social History Tobacco Use Types Packs/Day Years Used Date Smoking Tobacco: Never Passive Smoke Exposure: Never Smokeless Tobacco: Never Comments Unknown Sex and Gender Information Value Date Recorded Sex Assigned at Not on file Legal Sex Female 3:17 PM CDT Gender Identity Not on file Sexual Orientation Not on file documented as of this encounter Medications at Time of Discharge Medication Sig Dispense Quantity Refills Last Filled Start D ate End Date azelastine (ASTELIN) 137 mcg (0.1 %) nasal spray 07/23/2022 losartan (COZAAR) 100 mg tablet 07/12/2022 omeprazole (PriLOSEC) 40 mg capsule 07/30/2022 Prempro 0.625-5 mg per tablet 06/07/2022 rosuvastatin (CRESTOR) 10 mg tablet 07/23/2022 valACYclovir (VALTREX) 1 gram tablet 07/23/2022 valACYclovir (VALTREX) 500 mg tablet 07/25/2022 documented as of this encounter Discharge Disposition Disposition Code Departure Means Destination Discharge to home or self care documented in this encounter Plan of Treatment Not on file documented as of this encounter Procedures Procedure Name Priority Date/Time Associated Diagnosis Comments MSK CT MR OUTSIDE REFERENCE Routine 08/06/2022 12:25 PM CDT Diagnosis unknown documented in this encounter Results * MSK CT MR Outside Reference (08/06/2022 12:25 PM CDT) Impressions [facility] - 08/06/2022 12:25 PM CDT These images are for Reference purposes only and have not been reviewed by [facility] Radiology. ??There will be no report generated by a [facility] Radiologist. Narrative [facility] - 08/06/2022 12:25 PM CDT EXAMINATION: ??Images For Reference Purposes Only us Ihsan Morales IV, MD IMG CT PROCEDURES Fin al Result [facility] documented in this encounter Visit Diagnoses Not on filedocumented in this encounter Care Teams Soakers Supervisor Relationship Specialty Start Date End Date Paul Jurado MD [address] [place] [address] PCP - General Internal Medicine 07/31/22 documented as of this encounter
--- OUTSIDE RECORDS SUMMARY | 2024-04-21 12:17 | XMS_ITS | Continuity of Care Document ---
Author Organization [facility] Address [address], [address] [address] [place] [address] Phone Care Team Providers Care Hospice Superintendent Name Role Phone Tyrone Murray MD Unavailable [...] Diagnoses Date Provider Providers Copied on Encounter [facility], [address], [address] [address], [place], [place], [id number] , tel: [phone] [facility] DE[facility] No Information 0 6 Debbie Hansen. [address] [facility], [address], [place], [place], [facility], . tel: [phone] Consulting Provider: Victorina Hagen, [address] [facility] [address], [place], [place], [facility]. tel:[phone] OFFICE/OUTPA TIENT VISIT, [facility], [address], [address] [address], [place], [place], [id number] , [place] tel: [phone] [facility] OFFICE cough (chief complaint) CoughChronic sinusitis, unspecified locationGastroesopha geal reflux disease, esophagitis presence not specifiedTension headacheBruxism 6 Bunny Prajapati. [address] [facility], [address], [place], [place], [facility], . tel: [phone] Consulting Provider: Victorina Hagen, [address] [facility] [address], [place], [place], [facility]. tel:[phone] Family History Family Member Type Diagnosis Age At Onset Mother Problem (finding) Cancer:Ovarian Cancer - 2003 Payers Payer name Insurance type Covered green party ID Authoriza tion(s) [facility] [id number] Social History Type Description Quantity Date Captured [...] treat ordered Referral Ordered: CT Sinus w/ Sarles ordered Patient Education Cough: After Your Visit [...] No Information Instructions Date Instruction Additional Infor mation Rec: TMJ precautions ; Dr. Morin evaluation [...]
--- OUTSIDE RECORDS SUMMARY | 2024-04-21 12:17 | XMS_ITS | Referral Summary ---
Author Organization [place] [address] [facility] Address [address] [place] [address] Care Team Providers Care Dedicated Regional Driver Name Role Phone Paul Jurado MD Primary Care Provider Allergies Active Allergy Reactions Criticality Noted Date Comments Latex, Natural Rubber Other (See comments) Low 03/06/2017 Patient says I am sensitive to latex Medications azelastine (ASTELIN) 137 mcg (0.1 %) nasal spray 07/23/2022 Active Prempro 0.625-5 mg per tablet 06/07/2022 Active losartan (COZAAR) 100 mg tablet 07/12/2022 Activ e omeprazole (PriLOSEC) 40 mg capsule 07/30/2022 Active rosuvastatin (CRESTOR) 10 mg tablet 07/23/2022 Active valACYclovir (VALTREX) 1 gram tablet 07/23/2022 Active valACYclovir (VALTREX) 500 mg tablet 07/25/2022 Active Active Problems Problem Noted Date Diagnosed Date Acute pain of left knee 08/06/2022 Effusion of left knee 08/06/2022 Primary osteoarthritis of left knee 08/06/2022 Tear of medial meniscus of left knee, current Social History Tobacco Use Types Packs/Day Years Used Date Smoking Tobacco: Never Passive Smoke Exposure: Never Smokeless Tobacco: Never Tobacco Cessation:Counseling Given: No Personal Safety Answer Date Recorded Getting School Help Needed Not on file 06/08 Comments Unknown Sex and Gender Information Value Date Recorded Sex Assigned at Not on file Legal Sex Female 3:17 PM CDT Gender Identity Not on file Sexual Orientation Not on file Last Filed Vital Signs Vital Sign Reading Time Taken Comments Blood Pressure - - Pulse - - Temperature - - Respiratory Rate - - Oxygen Saturation - - Inhaled Oxygen Concentration - - Weight 79.4 kg (175 lb) 08/06/2022 2:29 PM CDT Height 165.1 cm (5' 5 ) 08/06/2022 2:29 PM CDT Body Mass Index 29.12 08/06/2022 2:29 PM CDT Plan of Treatment Not on file Insurance MEDICARE [facility] MEDICARE [employer] Care Teams Dedicated Regional Driver Relationship Specialty Start Date End Date Paul Jurado MD [address] [place] [address] PCP - General Internal Medicine 07/31/22
--- OUTSIDE RECORDS SUMMARY | 2024-04-21 12:17 | XMS_ITS | Encounter Summary ---
Author Organization [facility] Address [address] [place] [address] Phone Care Team Providers Care Opener Verifier Packer Customs Name Role Phone Paul Jurado MD Primary Care Provider [phone] Reason for Referral * Procedure (Routine) - Closed Specialty Diagnoses / Procedures Referred By Contac t Referred To Contact Diagnoses Acute pain of left knee Effusion of left knee Primary osteoarthritis of left knee Other tear of medial meniscus of left knee as current injury, initial encounter Procedures Large Joint Injection: [place] [id number] [place] [address] Phone: tel: fax: [facility] (All Locations) Referral ID Status Reason Start Date Expiration Date Visits Re quested Visits Authorized [id number] Closed 08/06/2022 09/05/2023 1 1 * Diagnostic Imaging (Routine) - Closed Specialty Diagnoses / Procedures Referred By Contac t Referred To Contact Diagnoses Left knee pain, unspecified chronicity Procedures XR Knee Left 1 [place] [id number] [place] [address] Phone: tel: fax: [facility] Referral ID Status Reason Start Date Expiration Date Visits Re quested Visits Authorized [id number] Closed 08/06/2022 09/05/2023 1 1 * Diagnostic Imaging (Routine) - Closed Specialty Diagnoses / Procedures Referred By Contkarlos t Referred To Contact Diagnoses Left knee pain, unspecified chronicity Procedures XR Knee Left [place] [address] [place] [address] Phone: tel: fax: [facility] Referral ID Status Reason Start Date Expiration Date Visits Re quested Visits Authorized [id number] Closed 08/06/2022 09/05/2023 1 1 Reason for Visit * Reason Comments Pain Encounter Details Date Type Department Care Team (Latest Contact Info) Description 08/06/2022 12:30 PM CDT Office Visit [facility] [address] [place] [address] [place] [address] [place] [address] [place] [address] Acute pain of left knee (Primary Dx); Effusion of left knee; Primary osteoarthritis of left knee; Other tear of medial meniscus of left knee as current injury, initial encounter Social History Tobacco Use Types Packs/Day Years Used Date Smoking Tobacco: Never Passive Smoke Exposure: Never Smokeless Tobacco: Never Tobacco Cessation:Counseling Given: No Comments Unknown Sex and Gender Information Value Date Recorded Sex Assigned at Not on file Legal Sex Female 3:17 PM CDT Gender Identity Not on file Sexual Orientation Not on file documented as of this encounter Last Filed Vital Signs Vital Sign Reading Time Taken Comments Blood Pressure - - Pulse - - Temperature - - Respiratory Rate - - Oxygen Saturation - - Inhaled Oxygen Concentration - - Weight 79.4 kg (175 lb) 08/06/2022 2:29 PM CDT Height 165.1 cm (5' 5 ) 08/06/2022 2:29 PM CDT Body Mass Index 29.12 08/06/2022 2:29 PM CDT documented in this encounter Progress Notes * Ihsan Morales IV, MD - 08/06/2022 12:30 PM CDT Images from the original note were not included. CHIEF COMPLAINT Left knee pain and swelling for 3 weeks HISTORY 67-year-old female who presents for evaluation of left knee pain which began in fall 2019 and became worse 3 weeks ago. The patient notes that she sustained a right knee meniscus tear in 10/2019 when she was stretching in bed and felt a pop. She underwent a right knee arthroscopic partial meniscectomy in 12/[address] Gordy Beck in [place], [place], where she previously lived. She notes that sheexperienced the onset of sharp left anterolateral knee pain in February 2020 while she was rehabbing her right knee. She reports that she did electric stimulation with her chiropractor and physical therapy for 4 weeks, and her pain gradually improved. However, she recently moved from [place] to [facility] and did a lot of heavy lifting while moving. On 07/14/2022, she bent over to pick something up and experienced the sudden onset of severe left knee pain. She denies feeling a pop, but notes that she was initially unable to bear weight due to the pain. Since then, she has continued to have sharp medial knee pain and swelling. She denies mechanical symptoms. She is been taking extra-strength T ylenol. An MRI was obtained which was concerning for a medial meniscus root tear and she was referred in for evaluation with me today PAST MEDICAL HISTORY She has no past medical history on file. PAST SURGICAL HISTORY She has no past surgical history on file. INITIAL REVIEW OF MEDICATIONS She has a current medication list which includes the following prescription(s): azelastine, losartan, omeprazole, prempro, rosuvastatin, valacyclovir, and valacyclovir. DRUG ALLERGIES She is allergic to latex, natural rubber. SOCIAL HISTORY She reports that she has never smoked. She has never been exposed to tobacco smoke. She has never used smokeless tobacco. She reports that she does not use drugs. No alcohol history on file. FAMILY HISTORY Her family history includes Cancer in her father, mother, and sister; Gout in her mother; Heart disease in her father; Hypertension in her father and mother. REVIEW OF SYSTEMS Review of symptoms were filled out by the patient on the enclosed intake form, which was reviewed and signed by me. PHYSICAL EXAMINATION The patient is a pleasant female in no acute distress. Height: 5 ft, 5 in, Weight: 175 lb. Alert and oriented x3. Respirations are regular and without distress. Hearing intact to the spoken word. Ambulates with a normal gait. Right knee - No pain with squat test, no pain with Thessaly. Left knee - No pain with squat test, guarding with Thessaly. Right knee - Skin is intact. No incisions. No erythema, edema, ecchymosis or effusion. Left knee - Skin is intact. No incisions. Large effusion. No erythema or ecchymosis. Right knee - No joint line or other tenderness. Left knee - Medial joint line tenderness to palpation. Lateral patellar facet tenderness palpation.No lateral joint line tenderness. Right knee -0 to 130 degrees of flexion. Patellofemoral crepitus. No pain with hyperflexion or hyperextension. Left knee - 0 to 110 degrees of flexion. Patellofemoral crepitus. Right knee - No pain with flexion compression. Left knee - Pain with flexion compression. Right knee - 1A Yulia, 1A anterior drawer, 1A posterior drawer. Stable to varus and valgus stressat 0 and 30 degrees of flexion. Left knee - 1A Yulia, 1A anterior drawer, 1A posterior drawer. Stable to varus and valgus stress at 0 and 30 degrees of flexion. Right lower extremity - Intact light touch over the lateral thigh, medial and lateral leg, dorsum of the foot, including first web space, and plantar aspect of the foot. 5/5 tib ant, EHL, and gastrocsoleus strength bilaterally. Palpable posterior tib pulse with regular rate and rhythm. Left lower extremity - Intact light touch over the lateral thigh, medial and lateral leg, dorsum ofthe foot, including first web space, and plantar aspect of the foot. 5/5 tib ant, EHL, and gastrocsoleus strength bilaterally. Palpable posterior tib pulse with regular rate and rhythm. REVIEW OF X-RAYS/STUDIES I independently reviewed plain films of the left knee, including bilateral Duarte views taken today and lateral and sunrise views taken at an outside facility on 07/23/2022 which show mild to moderate medial compartment osteoarthritis with joint space narrowing and early patellofemoral osteoarthri tis. No acute fracture. I independently reviewed left knee MRI images performed on 07/26/2022, demonstrating a left medial meniscus root tear with extrusion of the medial meniscus into the medial gutter. Medial compartment chondrosis with high-grade loss on the femur and tibia. Large effusion. Lateral meniscus appears intact. No obvious ligament tear. ASSESSMENT Left knee pain with early osteoarthritis and a medial meniscus root tear TREATMENT/PLAN I went over the MRI and x-rays with Toshia and her . I explained that I would not recommenda medial meniscus root repair because she already has pre- existing medial compartment osteoarthritis. I explained that I would recommend an aspiration and cortisone injection of the knee to minimize her symptoms. She may benefit from a knee arthroplasty in the future. I explained why I would recommend the aspiration and injection at this time and what the procedure would involve. I explained that I cannot predict how much symptom relief it will provide or how longthe relief will last. I discussed the risks and benefits, including but not limited to the risk of infection, the risk of a flare and how to minimize it, the risk of elevated blood sugars and the risk of change in pigmentation at the injection site. I explained we can repeat injections up to every 3 months as long as they provide adequate improvement in symptoms. See procedure note for full details. Follow up is as needed. Ihsan Morales MD Professor Sports Medicine [facility] I was present for the critical portion of the history and physical examination. All radiographic studies were personally interpreted by me and I determined the diagnosis and treatment plan and communicated them to the patient. Ihsan Morales MD Professor Sports Medicine [facility] Dictated using MModal Fluency Direct. Schedule Supervisor variations may occur. * Ihsan Morales IV, MD - 08/06/2022 12:30 PM CDTAssociated Order(s): Large Joint Injection: L knee Post-Procedure Diagnose(s): Acute pain of left knee; Effusion of left knee; Primary osteoarthritis of left knee; Other tear of medial meniscus of left knee as current injury, initial encounter Large Joint Injection: L knee Performed by: Ihsan Morales IV, MD Authorized by: Ihsan Morales IV, MD Large Joint Injection/Aspiration: Consent Given by: Patient Timeout: prior to procedure the correct patient, procedure, and site was verified Verbal consent obtained: Yes Supporting Documentation: Indications: Pain and joint swelling Procedure Details: Location: Knee Site: L knee Prep: patient was prepped using a clean technique Approach: Superior lateral Medications: 4 mL bupivacaine 0.5 % (5 mg/mL); 4 mL lidocaine PF 10 mg/mL (1 %); 80 mg methylPREDNISolone acetate 80 mg/mL Aspirate amount (mL): 31 Aspirate: Clear, serous and yellow Patient tolerance: Patient tolerated the procedure well with no immediate complications I discussed the risk and benefits of the injection with the patient including but not limited to the risk of infection, the risk of a flare and how to minimize it, and the risk of change in pigmentation at the injection site. documented in this encounter Plan of Treatment Scheduled Orders Name Type Priority Associated Diagnoses Orde r Schedule XR Knee Left 1 or 2 Views Imaging Schedule Routine, Read Routine (OP Routine) Acute pain of left knee Expected: 08/06/2022, Expires: 08/07/2023 documented as of this encounter Procedures Procedure Name Priority Date/Time Associated Diagnosis Comments NC ARTHROCENTESIS ASPIR&/INJ MAJOR JT/BURSA W/O US Routine 08/06/2022 12:30 PM CDT Acute pain of left knee Effusion of left knee Primary osteoarthritis of left knee Other tear of medial meniscus of left knee as current injury, initial encounter documented in this encounter Results * XR Knee Left 3 Views (08/06/2022 12:51 PM CDT) Anatomical Region Laterality Modality Lower Extremities, Knee Left Computed Radiography 08/06/2022 1:37 PM CDT Impressions 08/06/2022 2:33 PM CDT 1. Unchanged moderate medial and patellofemoral compartment left knee osteoarthritis. Dictated by: Jayjay Mahan M.D. The radiology attending physician has personally reviewed this study, and had reviewed and/or edited this written report and agrees with it. Electronically signed by: Bud Banegas M.D. Narrative 08/06/2022 2:33 PM CDT EXAMINATION: ??XR KNEE LEFT 3 VIEWS HISTORY: ??Knee pain FINDINGS: ?? Comparison is made to MRI 07/26/2022 and radiograph 07/23/2022. Moderate medial and patellofemoral compartment osteoarthritis with a small knee joint effusion is unchanged. ??No fracture. Procedure Note Bud Banegas MD - 08/06/2022 EXAMINATION: XR KNEE LEFT 3 VIEWS HISTORY: Knee pain FINDINGS: Comparison is made to MRI 07/26/2022 and radiograph 07/23/2022. Moderate medial and patellofemoral compartment osteoarthritis with a small knee joint effusion is unchanged. No fracture. IMPRESSION: 1. Unchanged moderate medial and patellofemoral compartment left knee osteoarthritis. Dictated by: Jayjay Mahan M.D. The radiology attending physician has personally reviewed this study, and had reviewed and/or edited this written report and agrees with it. Electronically signed by: Bud Banegas M.D. us Ihsan Morales IV, MD IMG XR PROCEDURES Fin al Result * NC ARTHROCENTESIS ASPIR&/INJ MAJOR JT/BURSA W/O US (08/06/2022 12:30 PM CDT) Narrative Ihsan Morales IV, MD - 08/06/2022 12:30 PM CDT Ihsan Morales IV, MD ? 08/06/2022 ??5:16 PM Large Joint Injection: L knee Performed by: Ihsan Morales IV, MD Authorized by: Ihsan Morales IV, MD ?? Large Joint Injection/Aspiration: ??Consent Given by: ??Patient ??Timeout: prior to procedure the correct patient, procedure, and site was verified ?Verbal consent obtained: Yes ?? Supporting Documentation: ??Indications: ??Pain and joint swelling Procedure Details: ??Location: ??Knee ??Site: ??L knee ??Prep: patient was prepped using a clean technique ?Approach: ??Superior lateral ??Medications: ??4 mL bupivacaine 0.5 % (5 mg/mL); 4 mL lidocaine PF 10 mg/mL (1 %); 80 mg methylPREDNISolone acetate 80 mg/mL ??Aspirate amount (mL): ??31 ??Aspirate: ??Clear, serous and yellow ??Patient tolerance: ??Patient tolerated the procedure well with no immediate complications ?? I discussed the risk and benefits of the injection with the patient including but not limited to the risk of infection, the risk of a flare and how to minimize it, and the risk of change in pigmentation at the injection site. us Ihsan Morales IV, MD IN CLINIC/BEDSIDE ORD JOSE CRUZ Final Result documented in this encounter Visit Diagnoses Diagnosis Acute pain of left knee- Primary Effusion of left knee Primary osteoarthritis of left knee Other tear of medial meniscus of left knee as current injury, initial encounter Left knee pain, unspecified chronicity documented in this encounter Administered Medications Inactive Administered Medications - up to 3 most recent administrations Medication Order MAR Action Action Date Dose Rate Site bupivacaine (MARCAINE) 0.5 % (5 mg/mL) preservative free injection 4 mL 4 mL, One-Time Injection, Starting on Sat08/06/22 at 1401, For 1 doseIndications:Acute pain of left knee,Effusion of left knee,Primary osteoarthritis of left knee,Other tear of medial meniscus of left knee as current injury, initial encounter Given 08/06/2022 2:01 PM CDT 4 mL Left Knee lidocaine PF (XYLOCAINE) 10 mg/mL (1 %) preservative free injection 4 mL 4 mL, other, One-Time Injection, Starting on Sat08/06/22 at 1401, For 1 doseIndications:Acute pain of left knee,Effusion of left knee,Primary osteoarthritis of left knee,Other tear of medial meniscus of left knee as current injury, initial encounter Given 08/06/2022 2:01 PM CDT 4 mL Left Knee methylPREDNISolone acetate (DEPO-medrol) injection 80 mg 80 mg, intra-articular, One-Time Injection, Starting on Sat08/06/22 at 1401, For 1 doseIndications:Acute pain of left knee,Effusion of left knee,Primary osteoarthritis of left knee,Other tear of medial meniscus of left knee as current injury, initial encounter Given 08/06/2022 2:01 PM CDT 80 mg Left Knee documented in this encounter Historical Medications * This list may reflect changes made after this encounter. Medication Sig Dispense Quantity Refills Last Filled Start D ate End Date valACYclovir (VALTREX) 500 mg tablet 07/25/2022 valACYclovir (VALTREX) 1 gram tablet 07/23/2022 rosuvastatin (CRESTOR) 10 mg tablet 07/23/2022 omeprazole (PriLOSEC) 40 mg capsule 07/30/2022 losartan (COZAAR) 100 mg tablet 07/12/2022 Prempro 0.625-5 mg per tablet 06/07/2022 azelastine (ASTELIN) 137 mcg (0.1 %) nasal spray 07/23/2022 added in this encounter Care Teams Opener Verifier [employer] Relationship Specialty Start Date End Date Paul Jurado MD [address] [place] [address] PCP - General Internal Medicine 07/31/22 documented as of this encounter
--- OUTSIDE RECORDS SUMMARY | 2024-04-21 12:17 | XMS_ITS | Encounter Summary ---
Author Organization [facility] Healthcare Address [facility] [place] [address] Care Team Providers Care Patternmaker Grader Name Role Phone Paul Jurado MD Primary Care Provider Encounter Details Date Type Department Care Team (Latest Contact Info) Description 08/06/2022 12:24 PM CDT - 08/06/2022 11:59 PM CDT Hospital Encounter [facility] [address] [place] [id number] Discharge Disposition: Discharge to home or self [...] Procedure Name Priority Date/Time Associated Diagnosis Comments XR TRANSFER OF OUTSIDE FILMS Routine 08/06/2022 12:24 PM CDT Diagnosis unknown documented in this encounter Results * XR Outside Reference (08/06/2022 12:24 PM CDT) Impressions [facility] - 08/06/2022 12:24 PM CDT These images are for Reference purposes only and have not been reviewed by [facility] Radiology. ??There will be no report generated by a [facility] Radiologist. Narrative [facility] - 08/06/2022 12:24 PM CDT EXAMINATION: ??Images For Reference Purposes Only us Ihsan Morales IV, MD IMG XR PROCEDURES Fin al Result [facility] documented in this encounter Visit Diagnoses Not on filedocumented in this encounter Care Teams Patternmaker Grader Relationship Specialty Start Date End Date Paul Jurado MD [address] [place] [address] PCP - General Internal Medicine 07/31/22 documented as of this encounter
--- OUTSIDE RECORDS SUMMARY | 2024-04-21 12:17 | XMS_ITS | Clinical Summary ---
Author Organization [place] [address] [facility] Address [address] [place] [address] Care Team Providers Care Asbestos Siding Mechanic Name Role Phone Paul Jurado MD Primary [...] of medial meniscus of left knee, current Family History Medical History Relation Name Comments Cancer Father Heart disease Father Hypertension Father Cancer Mother Gout Mother Hypertension Mother Cancer Sister Relation Name Status Comments Father Mother Sister Social History Tobacco Use Types Packs/Day Years [...] on file Sexual Orientation Not on file Obstetrics History Last Filed Vital Signs Vital Sign Reading Time Taken Comments Blood Pressure - - Pulse - - Temperature - - Respiratory Rate - - Oxygen Saturation - - Inhaled Oxygen Concentration - - Weight 79.4 kg (175 lb) 08/06/2022 2:29 PM CDT Height 165.1 cm (5' 5 ) 08/06/2022 2:29 PM CDT Body Mass Index 29.12 08/06/2022 2:29 PM CDT Plan of Treatment Health Maintenance Due Date Last Done Comments Breast Cancer Screening-Mammogram 1955 Colon Cancer Screening-Colonoscopy 1955 Depression Screening 1955 Fall Risk Assessment 1955 Hepatitis C Screening 1955 Osteoporosis Screening-Bone Density Scan 1955 DTaP/Tdap/Td Vaccine (1 - Tdap) 1966 Hepatitis B Screening 1973 Zoster Vaccine (1 of 2) 2005 Pneumococcal vaccine 65+ (1 of 1 - PCV) 2020 Well Visit 65+ 2020 Covid-19 Vaccine (5 - 2023-2 5 season) 2023 02/17/2022, 02/27/2021, 06/13/2020, Additional history exists Influenza Vaccine (#1) 2023 01/24/2022 Insurance MEDICARE [facility] MEDICARE [facility] Care Teams Asbestos Siding Mechanic Relationship Specialty Start Date End Date Paul Jurado MD [address] [place] [address] PCP - General Internal Medicine 07/31/22
--- OUTSIDE RECORDS SUMMARY | 2024-04-21 12:17 | XMS_ITS | Encounter Summary ---
Author Organization [facility] Address [address] [place] [address] Care Team Providers Care Car Tester Name Role Phone Paul Jurado MD Primary Care Provider + [phone] Reason for Referral * Diagnostic Imaging (Routine) - Closed Specialty Diagnoses / Procedures Referred By Contac t Referred To Contact Diagnoses Left knee pain, unspecified chronicity Procedures XR Knee Left 1 [place] [address] [place] [address] Phone: tel: fax: [facility] Referral ID Status Reason Start Date Expiration Date Visits Re quested Visits Authorized [id number] Closed 08/06/2022 09/05/2023 1 1 * Diagnostic Imaging (Routine) - Closed Specialty Diagnoses / Procedures Referred By Contac t Referred To Contact Diagnoses Left knee pain, unspecified chronicity Procedures XR Knee Left 3 [place] [address] [place] [address] Phone: tel: fax: [facility] Referral ID Status Reason Start Date Expiration Date Visits Re quested Visits Authorized [id number] Closed 08/06/2022 09/05/2023 1 1 Reason for Visit * Diagnostic Imaging (Routine) - Closed Specialty Diagnoses / Procedures Referred By Contac t Referred To Contact Diagnoses Left knee pain, unspecified chronicity Procedures XR Knee Left [place] [address] [place] [address] Phone: tel: fax: [facility] Referral ID Status Reason Start Date Expiration Date Visits Re quested Visits Authorized [id number] Closed 08/06/2022 09/05/2023 1 1 Encounter Details Date Type Department Care Team (Latest Contact Info) Description 08/06/2022 12:39 PM CDT - 08/06/2022 11:59 PM CDT Hospital Encounter [facility] [address] [place] [address] Left knee pain, unspecified chronicity Discharge Disposition: Discharge to home or self [...] Imaging Schedule Routine, Read Routine (OP Routine) Left knee pain, unspecified chronicity Once for 1 Occurrences starting 08/06/2022 until 08/06/2022 documented as of this encounter Procedures Procedure Name Priority Date/Time Associated Diagnosis Comments XR KNEE LEFT 3 VIEWS Schedule Routine, Read Routine (OP Routine) 08/06/2022 12:51 PM CDT Left knee pain, unspecified chronicity documented in this encounter Results * XR [...] it. Electronically signed by: Bud Banegas M.D. Ihsan Morales IV, MD IMG XR PROCEDURES Fin al Result documented in this encounter Visit Diagnoses Diagnosis Left knee pain, unspecified chronicity documented in this encounter Care Teams Car Tester Relationship Specialty Start Date End Date Paul Jurado MD [address] [place] [address] PCP - General Internal Medicine 07/31/22 documented as of this encounter
== END 2024-04-14 11:22 | disposition home or self-care (01) ==
LOC: CHSLAB 11:23
PROVIDERS: PCP Internal Medicine; Visit Provider Internal Medicine
DX: R05.9 Cough, unspecified (principal)
CPT/HCPCS: 36415; 71046; 85027

== ENCOUNTER 2024-05-19 12:21 | Outpatient (CLI) | payer MEDICARE, SELFPAY ==
--- NOTE | ~2024-05-19 | CT_ITS ---
EXAMINATION: CT abdomen pelvis w con DATE: 05/19/2024 13:09 INDICATION: Crohn's disease presenting with abdominal pain and diarrhea TECHNIQUE: Computed tomography (CT) of the abdomen and pelvis was performed with 100 mL Omnipaque-350 intravenous contrast. Automated exposure control and iterative reconstruction technique were employe d. The dose-length product was 667.18 mGy-cm. COMPARISON: None FINDINGS: Cluster of a few small calcified nodules at the right middle lobe consistent with old granulomatous d isease. Heart size is normal. Atherosclerotic coronary artery calcific location. No pericardial or pl eural effusion. There are couple low-attenuation hepatic cysts the largest measuring 2.2 cm at the ca rotid lobe. Prominent rim calcified gallstone at the fundus of the normal-appearing gallbladder with no wall thickening or pericolic inflammatory stranding to suggest acute cholecystitis. Spleen and adj acent splenule, pancreas, bilateral adrenal glands and kidneys are normal. Moderate sigmoid predomina nt diverticulosis without adjacent comparison to suggest diverticulitis. Small bowel and appendix are normal. Bladder is normal. Fibroid uterus with largest fibroid measuring 3.2 cm in maximal diameter. Bilateral adnexa are unremarkable. No free intraperitoneal gas or fluid. No pathologically enlarged abdominal or pelvic lymphadenopathy. Severe lower lumbar spondylosis. IMPRESSION: 1. No acute intra-abdominal/pelvic process. 2. Cholelithiasis. 3. Moderate diverticulosis. 4. Fibroid uterus. Reviewed, dictated and finalized at location A. TUNNEL ENGINEER
[2024-05-19 12:45] LABS: Estimated Glomerular Filt Rate > 60
--- OUTSIDE RECORDS SUMMARY | 2024-05-19 13:19 | XMS_ITS | Encounter Summary ---
Author Organization [facility] Address [address] [facility] [place] [address] Care Team Providers Care Financial Planner Name Role Phone Unavailable Primary Care Provider Unavailabl e Encounter Details Date Type Department Care Team (Late st Contact Info) Description 12/20/2022 Lab Requisition [facility] - DermPath Lab [address] [facility], [place] [address] Duyen Blackwell DO [address] [facility] 3 [place] [address] Social History Tobacco Use Types Packs/Day Years [...]
--- OUTSIDE RECORDS SUMMARY | 2024-05-19 13:19 | XMS_ITS | Clinical Summary ---
Author Organization [facility] Address [address] [facility] [place] [address] Care Team Providers Care Aitchbone Breaker Name Role Phone Unavailable Primary Care Provider Unavailabl e Source Comments [facility] [employer],non-owned Affiliates and Associated Physician Practices is amultiple site organization consisting of ambulatory clinics and hospital sitesin [place], [place], [place] and [place]. This disclosure is being madepursuant to the Care Everywhere program and may not contain all information available regarding this patient. Last updated 17.[facility] [employer] Social History Tobacco Use Types Packs/Day Years [...] LIPID TESTING 1955 MAMMOGRAM 1955 MEDICARE AWV 12 MONTHS 1955 HEPATITIS C SCREENING 02/26/1973 DTAP/TDAP/TD VACCINES (1 - Tdap) 1974 PNEUMOCOCCAL VACCINE 50+ (1 of 1 - PCV) 2005 ZOSTER VACCINE (1 of 2) 2005 COVID-19 VACCINE ( - 2023-2 5 season) [...] patient's age to complete this topic MENINGOCOCCAL (Group B) VACCINE Aged Out No longer eligible based on patient's age to complete this topic MENINGOCOCCAL VACCINE Aged Out No ignacia pramod eligible based on patient's age to complete this topic
--- OUTSIDE RECORDS SUMMARY | 2024-05-19 13:19 | XMS_ITS | Referral Summary ---
Author Organization [facility] Address [address] [facility] [place] [address] Care Team Providers Care Cage Cashier Name Role Phone Unavailable Primary Care Provider Unavailabl e Source Comments [facility] [employer],non-owned Affiliates and Associated Physician Practices is amultiple site organization consisting of ambulatory clinics and hospital sitesin [place], [place], [place] and [place]. This disclosure is being madepursuant to the Care Everywhere program and may not contain all information available regarding this patient. Last updated 17.[facility] [employer] Social History Tobacco Use Types Packs/Day Years Used Date Smoking Tobacco: Never Assessed Sex and Gender Information Value Date Recorded Sex Assigned at Not on file Gender Identity Not on file Sexual Orientation Not on file Plan of Treatment Not on file
--- OUTSIDE RECORDS SUMMARY | 2024-05-19 13:19 | XMS_ITS | Encounter Summary ---
Author Organization [facility] Address [address] [facility] [place] [address] Care Team Providers Care Commercial Lending Vice President Name Role Phone Unavailable Primary Care Provider Unavailabl e Encounter Details Date Type Department Care Team (Late st Contact Info) Description 12/20/2022 Lab Requisition [facility] - DermPath Lab [address] [facility], [place] [address] Andree Flores MD [address] [facility] 3 [place] [address] Social History Tobacco Use Types Packs/Day Years [...] 11:07 AM CDT) Case Report Dermatopathology Report Case: [id number] Authorizing Provider: Andree Flores MD Collected: 12/19/2022 11:07 AM Ordering Location: [facility] DermPath Lab Received: 12/20/2022 12:42 PM Pathologist: Shakira Everett MD Specimens: A) - Skin, left brow B) - Skin, mid back 1:49 PM CDT DERMATOPATHOLOGY LABORATORY Final Diagnosis Specimen A. 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 SKIN, mid back: LENTIGINOUS MELANOCYTIC NEVUS, JUNCTIONAL TYPE (D22.5) POST-INFLAMMATORY PIGMENT ALTERATION (L81.9) 1:49 PM CDT DERMATOPATHOLOGY LABORATORY Clinical History A: R/O AK vs BCC; [place] Papule B: R/O Melanoma, Nevus, Irregular Brown Papule 3 1:49 PM T DERMATOPATHOLOGY LABORATORY Gross Description Specimen A: Received [...] 9x5x1 mm. Jar 0. 3 1:49 PM [facility] DERMATOPATHOLOGY LABORATORY Microscopic Description Specimen A. SKIN, [...] the superficial vascular plexus. 3 1:49 PM [facility] DERMATOPATHOLOGY LABORATORY Disclaimer An external and internal positive and negative controls are appropriate for the histochemical, immunohistochemical and immunofluorescence stain(s) in this case (if any), except where stated explicitly. The performance characteristics of the stain(s) cited in this report were developed and its performance characteristic determined by the Dermatopathology Laboratory at [facility], directed by Dr. Angela Everett. These tests need not be, and therefore are not, approved by the [place] Food and Drug Administration. The tests are used for clinical purposes. Billing Codes Specimen Charges Stain Charges 72431 57094 1 1 3 1:49 PM CDT DERMATOPATHOLOGY LABORATORY Embedded Images 3 1:49 PM CDT DERMATOPATHOLOGY LABORATORY Pathology/Cytology TISSUE SPECIMEN FROM SKIN / Unknown 12/19/2022 11:07 AM CDT 12/20/2022 12:42 PM CDT Miscellaneous samples (specimen) TISSUE SPECIMEN FROM SKIN / Unknown 12/19/2022 11:07 AM CDT 12/20/2022 12:42 PM CDT Andree Flores MD LAB - PATHOLOGY/CYTO LOGY ORDERABLES DERMATOPATHOLOGY LABORATORY [facility] - Department of Dermatology [address], [address] [phone] documented in this encounter Visit Diagnoses Not on filedocumented in this encounter
--- OUTSIDE RECORDS SUMMARY | 2024-05-19 13:19 | XMS_ITS | Clinical Summary ---
Author Organization [place] [address] [facility] Address [address] [place] [address] Care Team Providers Care Air Reduction Equipment Operator Name Role Phone Paul Jurado MD Primary [...] Influenza Vaccine (#1) 2023 01/24/2022 Insurance MEDICARE [facility] MEDICARE [facility] Care Teams Air Reduction Equipment Operator Relationship Specialty Start Date End Date Paul Jurado MD [address] [place] [address] PCP - General Internal Medicine 07/31/22
--- OUTSIDE RECORDS SUMMARY | 2024-05-19 13:19 | XMS_ITS | Referral Summary ---
Author Organization [place] [id number] [facility] Address [address] [place] [address] Care Team Providers Care Cosmetic Chemist Name Role Phone Paul Jurado MD Primary [...] of Treatment Not on file Insurance MEDICARE [facility] MEDICARE AARP Care Teams Cosmetic Chemist Relationship Specialty Start Date End Date Paul Jurado MD [address] [place] [address] PCP - General Internal Medicine 07/31/22
--- OUTSIDE RECORDS SUMMARY | 2024-05-19 13:19 | XMS_ITS | Encounter Summary ---
Author Organization [facility] Address [address] [facility] [place] [address] Care Team Providers Care Disc Pad Knockout Worker Name Role Phone Unavailable Primary Care Provider Unavailabl e Encounter Details Date Type Department Care Team (Late st Contact Info) Description 01/27/2024 Lab Requisition [facility] Physician [facility] - DermPath Lab [address] [facility], [place] [address] Andree Flores MD [address] [facility] 3L [place] [address] Social History Tobacco Use Types Packs/Day Years [...] 3:53 PM CDT) Case Report Dermatopathology Report Case: [id number] Authorizing Provider: Andree Flores MD Collected: 01/27/2024 03:53 PM Ordering Location: [facility] - Received: 01/28/2024 12:12 PM DermPath Lab Pathologist: Mirela Ojeda MD Specimens: A) - Skin, left superior chest B) - Skin, left lower back 12:30 PM CDT DERMATOPATHOLOGY LABORATORY Final Diagnosis [...] characteristic determined by the Dermatopathology Laboratory at [facility], directed by Dr. Angela Everett. These tests need not be, and therefore are not, approved by the [place] Food and Drug Administration. The tests are used for clinical purposes. Billing Codes Specimen Charges Stain Charges 42595 27648 1 1 12:30 PM CDT DERMATOPATHOLOGY LABORATORY Embedded Images 12:30 PM CDT DERMATOPATHOLOGY LABORATORY Pathology/Cytology TISSUE SPECIMEN FROM SKIN / Unknown 01/27/2024 3:53 PM CDT 01/28/2024 12:12 PM CDT Miscellaneous samples (specimen) TISSUE SPECIMEN FROM SKIN / Unknown 01/27/2024 3:53 PM CDT 01/28/2024 12:12 PM CDT Andree Flores MD LAB - PATHOLOGY/CYTO LOGY ORDERABLES DERMATOPATHOLOGY LABORATORY [facility] - Department of Dermatology [facility] Medicine [facility] [facility], 3rd Floor [address] [phone] documented in this encounter Visit Diagnoses Not on filedocumented in this encounter
--- OUTSIDE RECORDS SUMMARY | 2024-05-19 13:19 | XMS_ITS | Patient Health Summary ---
Author Organization [facility] Address [address] [facility] [place] [address] Care Team Providers Care Paid Search Marketing Strategist Name Role Phone Unavailable Primary Care Provider Unavailabl e Note from [facility],non-owned Affiliates and Associated Physician Practices is amultiple site organization consisting of ambulatory clinics and hospital sitesin [place], [place], [place] and [place]. This disclosure is being madepursuant to the Care Everywhere program and may not contain all information available regarding this patient. Last updated 17.[facility] Social History Tobacco Use Types Packs/Day Years [...] period is included. Case Report Dermatopathology Report Case: [id number] Authorizing Provider: Andree Flores MD Collected: 01/27/2024 03:53 PM Ordering Location: [facility] - Received: 01/28/2024 12:12 PM DermPath Lab [...] purposes. Billing Codes Specimen Charges Stain Charges 82854 25362 1 1 12:30 PM CDT DERMATOPATHOLOGY LABORATORY Embedded Images 12:30 PM CDT DERMATOPATHOLOGY LABORATORY Pathology/Cytology TISSUE SPECIMEN FROM SKIN / Unknown 01/27/2024 3:53 PM CDT 01/28/2024 12:12 PM CDT Miscellaneous samples (specimen) TISSUE SPECIMEN FROM SKIN / Unknown 01/27/2024 3:53 PM CDT 01/28/2024 12:12 PM CDT Andree Flores MD LAB - PATHOLOGY/CYTO LOGY ORDERABLES DERMATOPATHOLOGY LABORATORY [facility] - Department of Dermatology [facility] Medicine [facility]5 [facility], 3rd Floor [address] [phone]
== END 2024-05-19 12:22 | disposition home or self-care (01) ==
LOC: CHSIMG 12:22
PROVIDERS: PCP Internal Medicine; Visit Provider Internal Medicine
DX: R19.7 Diarrhea, unspecified (principal); K80.50 Calculus of bile duct without cholangitis or cholecystitis without obstruction; K57.90 Diverticulosis of intestine, part unspecified, without perforation or abscess without bleeding; D25.9 Leiomyoma of uterus, unspecified
CPT/HCPCS: 74177; Q9967

== ENCOUNTER 2024-05-29 14:50 | Outpatient (CLI) | payer MEDICARE, SELFPAY ==
--- NOTE | ~2024-05-29 | MM_ITS ---
EXAMINATION: MM screening phill BI w glenn HISTORY: Screening TECHNIQUE: Craniocaudal and mediolateral oblique 3-D tomosynthesis images were obtained and synthetic 2-D images were generated. CAD analysis was submitted and interpreted. COMPARISON: Comparison to multiple prior studies sequentially, with oldest reviewed study dated 02/06. BREAST PARENCHYMAL COMPOSITION: Not Dense. The breasts are almost entirely fatty. FINDINGS: There is no evidence of suspicious mass, calcification, or architectural distortion to sugg est malignancy in either breast. There has been no suspicious interval change. IMPRESSION: 1. No mammographic evidence of malignancy. 2. Recommend routine screening mammography in one year. BI-RADS Category 1: Negative Reviewed, dictated and finalized at location L. TE COMPUTER TERMINAL OPERATOR
--- OUTSIDE RECORDS SUMMARY | 2024-05-29 14:53 | XMS_ITS | Encounter Summary ---
Author Organization [facility] Address [address] [facility] [place] [address] Care Team Providers Care Coil Winder Repair Name Role Phone Unavailable Primary Care Provider Unavailabl e Encounter Details Date Type Department Care Team (Late st Contact Info) Description 01/27/2024 Lab Requisition [facility] Physician [facility] - DermPath Lab [address] [facility] [place] [place] [address] Andree Flores MD [address] [facility] 3L [place] [address] Social History Tobacco Use Types Packs/Day Years [...] PM CDT) Case Report Dermatopathology Report Case: [id number] Authorizing Provider: Andree Flores MD Collected: 01/27/2024 03:53 PM Ordering Location: [facility] - Received: 01/28/2024 12:12 PM DermPath Lab [...] characteristic determined by the Dermatopathology Laboratory at [facility], directed by Dr. Angela Everett. These tests need not be, and therefore are not, approved by the [place] Food and Drug Administration. The tests are used for clinical purposes. Billing Codes Specimen Charges Stain Charges 75464 70691 1 1 12:30 PM CDT DERMATOPATHOLOGY LABORATORY Embedded Images 12:30 PM CDT DERMATOPATHOLOGY LABORATORY Pathology/Cytology TISSUE SPECIMEN FROM SKIN / Unknown 01/27/2024 3:53 PM CDT 01/28/2024 12:12 PM CDT Miscellaneous samples (specimen) TISSUE SPECIMEN FROM SKIN / Unknown 01/27/2024 3:53 PM CDT 01/28/2024 12:12 PM CDT Andree Flores MD LAB - PATHOLOGY/CYTO LOGY ORDERABLES DERMATOPATHOLOGY LABORATORY [facility] - Department of Dermatology [facility] Medicine [facility] [place] 3rd Floor [address] [phone] documented in this encounter Visit Diagnoses Not on filedocumented in this encounter
--- OUTSIDE RECORDS SUMMARY | 2024-05-29 14:53 | XMS_ITS | Patient Health Summary ---
Author Organization [facility] Address [address] [place] [address] Care Team Providers Care Feed Handler Name Role Phone Unavailable Primary Care Provider Unavailabl e Note from [facility],non-owned Affiliates and Associated Physician Practices is amultiple site organization consisting of ambulatory clinics and hospital sitesin [place], [place], [place] and [place]. This disclosure is being madepursuant to the Care Everywhere program and may not contain all information available regarding this patient. Last updated 17.[facility] Social History Tobacco Use Types Packs/Day Years [...] is included. Case Report Dermatopathology Report Case: [id number] Authorizing Provider: Andree Flores MD Collected: 01/27/2024 03:53 PM Ordering Location: [facility] - Received: 01/28/2024 12:12 PM DermPath [...] characteristic determined by the Dermatopathology Laboratory at [facility], directed by Dr. Angela Everett. These tests need not be, and therefore are not, approved by the [place] Food and Drug Administration. The tests are used for clinical purposes. Billing Codes Specimen Charges Stain Charges 84135 12536 1 1 12:30 PM CDT DERMATOPATHOLOGY LABORATORY Embedded Images 12:30 PM CDT DERMATOPATHOLOGY LABORATORY Pathology/Cytology TISSUE SPECIMEN FROM SKIN / Unknown 01/27/2024 3:53 PM CDT 01/28/2024 12:12 PM CDT Miscellaneous samples (specimen) TISSUE SPECIMEN FROM SKIN / Unknown 01/27/2024 3:53 PM CDT 01/28/2024 12:12 PM CDT Andree Flores MD LAB - PATHOLOGY/CYTO LOGY ORDERABLES DERMATOPATHOLOGY LABORATORY [facility] - Department of Dermatology [facility] Medicine [facility]5 [facility], 3rd Floor [address] [phone]
--- OUTSIDE RECORDS SUMMARY | 2024-05-29 14:53 | XMS_ITS | Encounter Summary ---
Author Organization [facility] Address [address] [facility] [place] [address] Care Team Providers Care Hearing Aid Repair Technician Name Role Phone Unavailable Primary Care Provider Unavailabl e Encounter Details Date Type Department Care Team (Late st Contact Info) Description 12/20/2022 Lab Requisition [facility] Derm[facility] Lab [address] [facility], [place] [address] Duyen Blackwell DO [address] [facility] 3 [place] [address] Social History Tobacco Use Types Packs/Day Years [...]
--- OUTSIDE RECORDS SUMMARY | 2024-05-29 14:53 | XMS_ITS | Referral Summary ---
Author Organization [place] [address] [facility] Address [address] [place] [address] Care Team Providers Care Reservoir Engineering Consultant Name Role Phone Paul Jurado MD Primary [...] of Treatment Not on file Insurance MEDICARE [facility] MEDICARE [employer]ARP Care Teams Reservoir Engineering Consultant Relationship Specialty Start Date End Date Paul Jurado MD [address] [place] [address] PCP - General Internal Medicine 07/31/22
--- OUTSIDE RECORDS SUMMARY | 2024-05-29 14:53 | XMS_ITS | Encounter Summary ---
Author Organization [facility] Address [address] [place] [address] Care Team Providers Care Special Education Superintendent Name Role Phone Unavailable Primary Care Provider Unavailabl e Encounter Details Date Type Department Care Team (Late st Contact Info) Description 12/20/2022 Lab Requisition [facility] - DermPath Lab [address] [facility], [place] [address] Andree Flores MD [address] [facility] 3 [place] [address] Social History Tobacco Use Types Packs/Day Years [...] AM CDT) Case Report Dermatopathology Report Case: [id number] Authorizing Provider: Andree Flores MD Collected: 12/19/2022 11:07 AM Ordering Location: [facility] DermPath Lab Received: 12/20/2022 12:42 PM Pathologist: [...] Clinical History A: R/O AK vs BCC; [place] Papule B: R/O Melanoma, Nevus, Irregular Brown [...] 9x5x1 mm. Jar 0. 3 1:49 PM [facility] DERMATOPATHOLOGY LABORATORY Microscopic Description Specimen A. SKIN, [...] the superficial vascular plexus. 3 1:49 PM [facility] DERMATOPATHOLOGY LABORATORY Disclaimer An external and internal positive and negative controls are appropriate for the histochemical, immunohistochemical and immunofluorescence stain(s) in this case (if any), except where stated explicitly. The performance characteristics of the stain(s) cited in this report were developed and its performance characteristic determined by the Dermatopathology Laboratory at [facility], directed by Dr. Angela Everett. These tests need not be, and therefore are not, approved by the [place] Food and Drug Administration. The tests are used for clinical purposes. Billing Codes Specimen Charges Stain Charges 80024 04396 1 1 3 1:49 PM CDT DERMATOPATHOLOGY LABORATORY Embedded Images 3 1:49 PM CDT DERMATOPATHOLOGY LABORATORY Pathology/Cytology TISSUE SPECIMEN FROM SKIN / Unknown 12/19/2022 11:07 AM CDT 12/20/2022 12:42 PM CDT Miscellaneous samples (specimen) TISSUE SPECIMEN FROM SKIN / Unknown 12/19/2022 11:07 AM CDT 12/20/2022 12:42 PM CDT Andree Flores MD LAB - PATHOLOGY/CYTO LOGY ORDERABLES DERMATOPATHOLOGY LABORATORY [facility] - Department of Dermatology [address], [address] [phone] documented in this encounter Visit Diagnoses Not on filedocumented in this encounter
--- OUTSIDE RECORDS SUMMARY | 2024-05-29 14:53 | XMS_ITS | Clinical Summary ---
Author Organization [place] [id number] [facility] Address [address] [place] [address] Care Team Providers Care Social Work Lecturer Name Role Phone Paul Jurado MD Primary Care Provider [phone] Allergies Active Allergy Reactions Criticality Noted Date [...] - Tdap) 1966 Hepatitis B Screening 1973 Pneumococcal vaccine 65+ (1 of 1 - PCV) 2005 Zoster Vaccine (1 of 2) 2005 Well Visit 65+ 2020 Covid-19 Vaccine (5 - 2023-2 5 season) 2023 02/17/2022, 02/27/2021, 06/13/2020, Additional history exists Influenza Vaccine (#1) 2023 01/24/2022 Insurance MEDICARE [facility] Address: [address] [address] [facility]IC[facility] Care Teams Social Work Lecturer Relationship Specialty Start Date End Date Paul Jurado MD [address] [place] [address] PCP - General Internal Medicine 07/31/22
--- OUTSIDE RECORDS SUMMARY | 2024-05-29 14:53 | XMS_ITS | Clinical Summary ---
Author Organization [facility] Address [address] [facility] [place] [address] Care Team Providers Care Ammunition Assembly Ii Laborer Name Role Phone Unavailable Primary Care Provider Unavailabl e Source Comments [facility] [employer],non-owned Affiliates and Associated Physician Practices is amultiple site organization consisting of ambulatory clinics and hospital sitesin [place], [place], [place] and [place]. This disclosure is being madepursuant to the Care Everywhere program and may not contain all information available regarding this patient. Last updated 17.[facility] [employer] Social History Tobacco Use Types Packs/Day Years [...]
--- OUTSIDE RECORDS SUMMARY | 2024-05-29 14:53 | XMS_ITS | Referral Summary ---
Author Organization [facility] Address [address] [facility] [place] [address] Care Team Providers Care Sludge Control Attendant Name Role Phone Unavailable Primary Care Provider Unavailabl e Source Comments [facility] [employer],non-owned Affiliates and Associated Physician Practices is amultiple site organization consisting of ambulatory clinics and hospital sitesin [place], [place], [place] and [place]. This disclosure is being madepursuant to the Care Everywhere program and may not contain all information available regarding this patient. Last updated 17.[facility] [employer] Social History Tobacco Use Types Packs/Day Years Used Date Smoking Tobacco: Never Assessed Sex and Gender Information Value Date Recorded Sex Assigned at Not on file Gender Identity Not on file Sexual Orientation Not on file Plan of Treatment Not on file
--- OUTSIDE RECORDS SUMMARY | 2024-05-29 14:53 | XMS_ITS | Continuity of Care Document ---
Author Organization [facility] Address [address], [address] [address] [place] [address] Phone Care Team Providers Care Machine Binder Stripper Name Role Phone Tyrone Murray MD Unavailable [...] Diagnoses Date Provider Providers Copied on Encounter [facility], [address], [address] [address], [place], [place], [id number] , tel: [phone] [facility] DEBBIE No Information 0 6 Debbie Hansen. [address] [facility], [address], [place], [address], . tel: [phone] Consulting Provider: Victorina Hagen, [address] [facility] [address], [place], [address]. tel:[phone] OFFICE/OUTPA TIENT VISIT, [facility], [address], [address] [address], [place], [place], [id number] , [place] tel: [phone] [facility] OFFICE cough (chief complaint) CoughChronic sinusitis, unspecified locationGastroesopha geal reflux disease, esophagitis presence not specifiedTension headacheBruxism 0 6 Bunny Prajapati. [address] [facility] [address], [place], [place], [id number] , [place]. tel: [phone] Consulting Provider: Victorina Hagen, [address] [facility] [address], [place], [address]. tel:[phone] Family History Family Member Type Diagnosis Age At Onset Mother Problem (finding) Cancer:Ovarian Cancer - 2003 Payers Payer name Insurance type Covered democrat ID Authoriza tion(s) [facility] [id number] Social History Type Description Quantity Date Captured [...] treat ordered Referral Ordered: CT Sinus w/ Mooar ordered Patient Education Cough: After Your Visit [...]
== END 2024-05-29 14:51 | disposition home or self-care (01) ==
LOC: CHSIMG 14:51
PROVIDERS: PCP Internal Medicine; Visit Provider Obstetrics & Gynecology
DX: Z12.31 Encounter for screening mammogram for malignant neoplasm of breast (principal)
CPT/HCPCS: 77063; 77067

== ENCOUNTER 2024-06-15 08:49 | Outpatient (CLI) | payer MEDICARE, SELFPAY ==
--- NOTE | ~2024-06-15 | NM_ITS ---
EXAMINATION: NM hepatobiliary w pharm DATE: 06/15/2024 13:06 INDICATION: Right upper quadrant abdominal pain. COMPARISON: CT abdomen and pelvis 01/16/2025 TECHNIQUE: 6.3 mCi Tc-99m mebrofenin (Choletec) was administered intravenously. Scintigraphic images of the abdomen were obtained for one hour. Then, 1.7 mcg sincalide (Kinevac) IV was administered, an d imaging was continued for 30 minutes. FINDINGS: There is normal clearance of radiotracer from the blood pool. There is homogeneous tracer u ptake by the liver. Activity progresses to the bowel and gallbladder. Gallbladder ejection fraction (GBEF) was 65%. Note that most patients with gallbladder dysfunction have GBEF < 35%, which overlaps with the broad normal range of 10-90%. IMPRESSION: 1. Normal hepatobiliary scintigraphy. Reviewed, dictated and finalized at location B.
--- OUTSIDE RECORDS SUMMARY | 2024-06-15 09:39 | XMS_ITS | Referral Summary ---
Author Organization [facility] Address [address] [facility] [place] [address] Care Team Providers Care Artist Mannequin Coloring Name Role Phone Unavailable Primary Care Provider Unavailabl e Source Comments [facility] [employer],non-owned Affiliates and Associated Physician Practices is amultiple site organization consisting of ambulatory clinics and hospital sitesin [place], [place], [place] and [place]. This disclosure is being madepursuant to the Care Everywhere program and may not contain all information available regarding this patient. Last updated 17.[facility] [employer] Social History Tobacco Use Types Packs/Day Years Used Date Smoking Tobacco: Never Assessed Sex and Gender Information Value Date Recorded Sex Assigned at Not on file Gender Identity Not on file Sexual Orientation Not on file Plan of Treatment Not on file
--- OUTSIDE RECORDS SUMMARY | 2024-06-15 09:39 | XMS_ITS | Clinical Summary ---
Author Organization [facility] Address [address] [place] [place] [address] Care Team Providers Care Instructor Warper Name Role Phone Unavailable Primary Care Provider Unavailabl e Source Comments [facility],non-owned Affiliates and Associated Physician Practices is amultiple site organization consisting of ambulatory clinics and hospital sitesin [place], [place], [place] and [place]. This disclosure is being madepursuant to the Care Everywhere program and may not contain all information available regarding this patient. Last updated 17.[facility] Social History Tobacco Use Types Packs/Day Years [...]
--- OUTSIDE RECORDS SUMMARY | 2024-06-15 09:39 | XMS_ITS | Patient Health Summary ---
Author Organization [facility] Address [address] [facility] [place] [address] Care Team Providers Care Bark Skinner Name Role Phone Unavailable Primary Care Provider Unavailabl e Note from [facility],non-owned Affiliates and Associated Physician Practices is amultiple site organization consisting of ambulatory clinics and hospital sitesin [place], [place], [place] and [place]. This disclosure is being madepursuant to the Care Everywhere program and may not contain all information available regarding this patient. Last updated 17.[facility] Social History Tobacco Use Types Packs/Day [...] is included. Case Report Dermatopathology Report Case: [id number] Authorizing Provider: Andree Flores MD Collected: 01/27/2024 03:53 PM Ordering Location: [facility] - Received: 01/28/2024 12:12 PM DermPath [...] characteristic determined by the Dermatopathology Laboratory at [facility], directed by Dr. Angela Everett. These tests need not be, and therefore are not, approved by the [place] Food and Drug Administration. The tests are used for clinical purposes. Billing Codes Specimen Charges Stain Charges 56741 47175 1 1 12:30 PM CDT DERMATOPATHOLOGY LABORATORY Embedded Images 12:30 PM CDT DERMATOPATHOLOGY LABORATORY Pathology/Cytology TISSUE SPECIMEN FROM SKIN / Unknown 01/27/2024 3:53 PM CDT 01/28/2024 12:12 PM CDT Miscellaneous samples (specimen) TISSUE SPECIMEN FROM SKIN / Unknown 01/27/2024 3:53 PM CDT 01/28/2024 12:12 PM CDT Andree Flores MD LAB - PATHOLOGY/CYTO LOGY ORDERABLES DERMATOPATHOLOGY LABORATORY [facility] - Department of Dermatology [facility] Medicine [facility] [facility], 3rd Floor [address] [phone]
--- OUTSIDE RECORDS SUMMARY | 2024-06-15 09:39 | XMS_ITS | Clinical Summary ---
Author Organization [place] [id number] [facility] Address [address] [place] [address] Care Team Providers Care Controller Mechanic Name Role Phone Paul Jurado MD Primary Care Provider [phone] Allergies Active Allergy Reactions Criticality Noted Date [...] Influenza Vaccine (#1) 2023 01/24/2022 Insurance MEDICARE [facility] [place] [address] [facility] Care Teams Controller Mechanic Relationship Specialty Start Date End Date Paul Jurado MD [address] [place] [address] PCP - General Internal Medicine 07/31/22
--- OUTSIDE RECORDS SUMMARY | 2024-06-15 09:39 | XMS_ITS | Referral Summary ---
Author Organization [place] [id number] [facility] Address [address] [place] [address] Care Team Providers Care Record Center Coordinator Name Role Phone Paul Jurado MD Primary Care Provider [phone] Allergies Active Allergy Reactions Criticality Noted Date [...] of Treatment Not on file Insurance MEDICARE [facility] MEDICARE [employer] Care Teams Record Center Coordinator Relationship Specialty Start Date End Date Paul Jurado MD [address] [place] [address] PCP - General Internal Medicine 07/31/22
--- OUTSIDE RECORDS SUMMARY | 2024-06-15 09:39 | XMS_ITS | Encounter Summary ---
Author Organization [facility] Address [address] [facility] [place] [address] Care Team Providers Care Barrel Inspector Name Role Phone Unavailable Primary Care Provider Unavailabl e Encounter Details Date Type Department Care Team (Late st Contact Info) Description 12/20/2022 Lab Requisition [facility] - DermPath Lab [address] [facility], [place] [address] Andree Flores MD [address] [facility] 3 [place] [address] Social History Tobacco Use Types Packs/Day Years [...] AM CDT) Case Report Dermatopathology Report Case: [id number] Authorizing Provider: Andree Flores MD Collected: 12/19/2022 11:07 AM Ordering Location: [facility] DermPath Lab Received: 12/20/2022 12:42 PM Pathologist: [...] Clinical History A: R/O AK vs BCC; [place] Papule B: R/O Melanoma, Nevus, Irregular Brown [...] 9x5x1 mm. Jar 0. 3 1:[address] [facility] DERMATOPATHOLOGY LABORATORY Microscopic Description Specimen A. [...] the superficial vascular plexus. 3 1:[address] [facility] DERMATOPATHOLOGY LABORATORY Disclaimer An external and internal positive and negative controls are appropriate for the histochemical, immunohistochemical and immunofluorescence stain(s) in this case (if any), except where stated explicitly. The performance characteristics of the stain(s) cited in this report were developed and its performance characteristic determined by the Dermatopathology Laboratory at [facility], directed by Dr. Angela Everett. These tests need not be, and therefore are not, approved by the [place] Food and Drug Administration. The tests are used for clinical purposes. Billing Codes Specimen Charges Stain Charges 48541 [id number] 1 1 3 1:49 PM CDT DERMATOPATHOLOGY [...] LABORATORY [facility] - Department of Dermatology [address], [address] [phone] documented in this encounter Visit Diagnoses Not on filedocumented in this encounter
--- OUTSIDE RECORDS SUMMARY | 2024-06-15 09:39 | XMS_ITS | Encounter Summary ---
Author Organization [facility] Address [address] [place] [address] Care Team Providers Care Cable Systems Installer Name Role Phone Unavailable Primary Care Provider Unavailabl e Encounter Details Date Type Department Care Team (Late st Contact Info) Description 01/27/2024 Lab Requisition [facility] Phys[facility] - DermPath Lab [address] [facility], [place] [address] Andree Flores MD [address] [facility] [address]L [place] [address] Social History Tobacco Use Types Packs/Day Years [...] PM CDT) Case Report Dermatopathology Report Case: [id number] Authorizing Provider: Andree Flores MD Collected: 01/27/2024 03:53 PM Ordering Location: [facility] - Received: 01/28/2024 12:12 PM DermPath Lab [...] characteristic determined by the Dermatopathology Laboratory at [facility], directed by Dr. Angela Everett. These tests need not be, and therefore are not, approved by the [place] Food and Drug Administration. The tests are used for clinical purposes. Billing Codes Specimen Charges Stain Charges [id number] 52271 1 1 12:30 PM CDT DERMATOPATHOLOGY LABORATORY Embedded Images 12:30 PM CDT DERMATOPATHOLOGY LABORATORY Pathology/Cytology TISSUE SPECIMEN FROM SKIN / Unknown 01/27/2024 3:53 PM CDT 01/28/2024 12:12 PM CDT Miscellaneous samples (specimen) TISSUE SPECIMEN FROM SKIN / Unknown 01/27/2024 3:53 PM CDT 01/28/2024 12:12 PM CDT Andree Flores MD LAB - PATHOLOGY/CYTO LOGY ORDERABLES DERMATOPATHOLOGY LABORATORY [facility] - Department of Dermatology [facility] Medicine [facility], 3rd Floor [address] [phone] documented in this encounter Visit Diagnoses Not on filedocumented in this encounter
--- OUTSIDE RECORDS SUMMARY | 2024-06-15 09:39 | XMS_ITS | Encounter Summary ---
Author Organization [facility] Address [address] [facility] [place] [address] Care Team Providers Care Research Psychologist Name Role Phone Unavailable Primary Care Provider Unavailabl e Encounter Details Date Type Department Care Team (Late st Contact Info) Description 12/20/2022 Lab Requisition [facility] - DermPath Lab [address] [facility], [place] [address] Duyen Blackwell DO [address] [facility] 3 [place] [address] Social History Tobacco Use Types Packs/Day Years [...]
== END 2024-06-15 08:50 | disposition home or self-care (01) ==
LOC: CHSIMG 08:51
PROVIDERS: PCP Internal Medicine; Visit Provider Internal Medicine
DX: R10.11 Right upper quadrant pain (principal)
CPT/HCPCS: 78227; A9537; J2805

== ENCOUNTER 2024-09-15 09:20 | Outpatient (CLI) | payer MEDICARE, SELFPAY ==
--- NOTE | ~2024-09-15 | MR_ITS ---
MRI of the left knee Clinical history: Medial meniscal tear Technique: Coronal proton density and proton density-weighted images, sagittal proton-density and T2 fat-sat images, and axial proton-density fat-saturated images were acquired. COMPARISON: 07/26/2022 Findings: Anterior and posterior cruciate ligaments are intact. Medial collateral ligament and the la teral collateral ligament complex are intact. Popliteus tendon is intact. Large radial tear at the posterior root of the medial meniscus is increase in size/extent from prior exam. There is probable large oblique tear of the body segment of the medial meniscus which is partia lly extruded into the medial gutter versus severe intrasubstance degenerative signal. No lateral meni scal tear evident. There is moderate to high-grade chondral malacia the inferior aspect of the femoral trochlea. There i s extensive high-grade chondral lesion on both sides of the medial compartment. There is high-grade c hondral malacia the inner aspect of the lateral tibial plateau. There is mild subchondral reactive ma rrow edema in the region of high-grade chondral malacia noted above. Extensor mechanism is intact. Small joint effusion present. Minimal Eddy's cyst. Impression: Large radial tear of the posterior medial meniscus, increased in size from prior exam, versus possibl y sequelae of prior partial meniscectomy. Correlate with any relevant surgical history. Additional probable oblique tear of the body of the medial meniscus versus severe stenosis degenerati ve signal. High-grade chondromalacia the medial compartment and inferior femoral trochlea as well as at the inne r margin of the lateral tibial plateau, with subchondral marrow edema in these regions. Small joint effusion. Reviewed, dictated and finalized at location . Impression: Large radial tear of the posterior medial meniscus, increased in size from prio r exam, versus possibly sequelae of prior partial meniscectomy. Correlate with any relevant surgical history. Additional probable oblique tear of the body of the medial meniscus versus saira re stenosis degenerative signal. High-grade chondromalacia the medial compartment and inferior femoral trochlea as well as at the inner margin of the lateral tibial plateau, with subchondral marrow edema in these regions. Small joint effusion.
== END 2024-09-15 09:21 | disposition home or self-care (01) ==
LOC: MICIMG 09:21
PROVIDERS: PCP Internal Medicine; Visit Provider Internal Medicine
DX: S83.242A Other tear of medial meniscus, current injury, left knee, initial encounter (principal); X58.XXXA Exposure to other specified factors, initial encounter; M94.262 Chondromalacia, left knee; M25.462 Effusion, left knee
CPT/HCPCS: 73721

== ENCOUNTER 2025-01-26 00:31 | Day surgery (SDC) | payer MEDICARE, SELFPAY ==
--- OUTSIDE RECORDS SUMMARY | 2016-01-16 11:45 | XMS_ITS | Continuity of Care Document ---
Author Organization [facility] Address [address], [address] [address] [place] [address] Phone Care Team Providers Care Rubber Cutter Name Role Phone Tyrone Murray MD Unavailable Unavailable Victorina Hollis MD Unavailable Unavailable Allergies, Adverse Reactions, Alerts Substance Reaction Status Criticality No Known Allergies Resolved No Inform ation Medications Medication Instructions Dosage Effective Dates (start - stop) Status Comments OMEPRAZOLE (unknown strength) Not Available - Active LOSARTAN POTASSIUM (unknown strength) Not Available - Active ZYRTEC (unknown strength) Not Available - Active MEGARED OMEGA-3 KRILL OIL (unknown strength) Not Available - Active FLAXSEED OIL (unknown strength) Not Available - Active VITAMIN C (unknown strength) Not Available - Active CALCIUM (unknown strength) Not Available - Active MULTIVITAMIN (unknown strength) Not Available - Active PREMPRO (unknown strength) Not Available - Active Tessalon Perles 100 mg capsule take 1 capsule by oral route 3 times every day for 10 days 100 MG - No Longer Active Procedures Procedure Date CT MAXILLOFACIAL W/O DYE DIAGNOSTIC LARYNGOSCOPY OFFICE/OUTPATIENT VISIT, NEW Advance Directives Directive Yes / No Effective Date File Name No Information Encounters Encounter Description Practice Location Reason(s) For Visit Diagnoses Date Provider Providers Copied on Encounter [facility], [address], [address] [address], [place], [place], [id number] , tel: [phone] [facility] No Information 0 6 Debbie Hansen. [address] [facility], [address], [place], [address], . tel: [phone] Consulting Provider: Victorina Hagen, [address] [facility] [address], [place], [address]. tel:[phone] OFFICE/OUTPA TIENT VISIT, [facility], [address], [address] [address], [place], [place], [id number] , [place] tel: [phone] [facility] cough (chief complaint) CoughChronic sinusitis, unspecified locationGastroesopha geal reflux disease, esophagitis presence not specifiedTension headacheBruxism 0 6 Bunny Prajapati. [address] [facility] [facility] [address], [place], [place], [id number] , [place]. tel: [phone] Consulting Provider: Victorina Hagen, [address] [facility] [address], [place], [address]. tel:[phone] Family History Family Member Type Diagnosis Age At Onset Mother Problem (finding) Cancer:Ovarian Cancer - 2003 Payers Payer name Insurance type Covered alliance party ID Authoriza tion(s) [facility] [id number] Social History Type Description Quantity Date Captured Comments Alcohol Use Details Unknown Caffeine Use Details Unknown Tobacco Use Status No Information Smoking Status No Information Sex Female Chief Complaint And Reason For Visit No Information Reason For Referral Reason For Referral No Information Plan Of Treatment Date Type Action Status Referral Referred To: Victorina Leonardo Ordered: Referrals: Allergy and Immunology. Victorina Leonardo. Location: [facility]. Evaluate and treat ordered Referral Ordered: CT Sinus w/ [place] ordered Patient Education Cough: After Your Visit completed History Of Present Illness Encounter Date Complaint History Of Prese nt Illness cough (comments) CT sinus done t muna. 1. Essentially clear paranasal sinuses bilaterally2. Small left cha bullosa cough Associated sympt oms include cough, heartburn, hoarseness, nasal congestion and sore throat. Pertinent negatives include dyspnea and fever. Functional Status Date Functional Assessmen t No Information Instructions Date Instruction Additional Infor ezio Rec: TMJ precautions ; Dr. Morin evaluation Related to Bruxism Rec: management of TMJ issues Re lated to Tension headache Rec: nasal saline; aj coker; xiao suárez; Dr. Leonardo evaluation for cough issues; GERD precautions and diet; continue with GERD management as per GI physician Related to Cough Assessments Type Assessment Date No Information Patient Care Teams Name Effective Dates (start - stop) Status Members No Information
[2025-01-18 13:33] VITALS: BMI 29.1
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
--- OUTSIDE RECORDS SUMMARY | 2025-01-26 00:34 | XMS_ITS | Encounter Summary ---
Author Organization [facility] Address [address] [facility] [place] [address] Care Team Providers Care Deaf/Hard Of Hearing Specialist Name Role Phone Unavailable Primary Care Provider Unavailabl e Encounter Details Date Type Department Care Team (Late st Contact Info) Description 12/20/2022 Lab Requisition [facility] - DermPath Lab [address] [facility], [place] [address] Duyen Blackwell DO [address] [facility] 3 [place] [address] Social History Tobacco Use Types Packs/Day Years Used Date Smoking Tobacco: Never Assessed Comments Unknown Sex and Gender Information Value Date Recorded Sex Assigned at Not on file Legal Sex Female 9:41 AM CDT Gender Identity Not on file Sexual Orientation Not on file documented as of this encounter Plan of Treatment Not on file documented as of this encounter Visit Diagnoses Not on filedocumented in this encounter
--- OUTSIDE RECORDS SUMMARY | 2025-01-26 00:34 | XMS_ITS | Encounter Summary ---
Author Organization [facility] Address [address] [facility] [address] Care Team Providers Care Stacker Straightener Name Role Phone Unavailable Primary Care Provider Unavailabl e Encounter Details Date Type Department Care Team (Late st Contact Info) Description 08/18/2024 Lab Requisition [facility] - DermPath Lab [address] [place] [id number] Amber Loo MD [address] [place] [address] Social History Tobacco Use Types Packs/Day Years [...] Priority Date/Time Associated Diagnosis Comments DERMATOPATHOLOGY Routine 08/18/2024 3:49 PM CDT documented in this encounter Results * DERMATOPATHOLOGY (08/18/2024 3:49 PM CDT) Case Report Dermatopathology Report Case: [id number] Authorizing Provider: Amber Loo MD Collected: 08/18/2024 03:49 PM Ordering Location: [facility] Physician [facility] - Received: 08/20/2024 06:43 AM DermPath Lab Pathologist: Vera Simon MD Specimen: Skin, left hand 12:25 PM CDT DERMATOPATHOLOGY LABORATORY Final Diagnosis Specimen A. 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 The specimen consists of a shave biopsy measuring 7x5x1 mm. Jar 0. 12:25 PM CDT DERMATOPATHOLOGY LABORATORY Microscopic Description Specimen A. SKIN, left hand: Zones of the epithelium are confluently replaced by atypical keratinocytes, and aggregations of atypical keratinocytes also extend into the dermis. 12:25 PM CDT DERMATOPATHOLOGY LABORATORY Disclaimer An external and internal positive and negative controls are appropriate for the histochemical, immunohistochemical and immunofluorescence stain(s) in this case (if any), except where stated explicitly. The performance characteristics of the stain(s) cited in this report were developed and its performance characteristic determined by the Dermatopathology Laboratory at [facility], directed by Dr. Angela Everett. These tests need not be, and therefore are not, approved by the [place] Food and Drug Administration. The tests are used for clinical purposes. Billing Codes Specimen Charges Stain Charges 60996 1 12:25 PM CDT DERMATOPATHOLOGY LABORATORY Embedded Images 12:25 PM CDT DERMATOPATHOLOGY LABORATORY Pathology/Cytolo gy TISSUE SPECIMEN FROM SKIN / Unknown 08/18/2024 3:49 PM CDT 08/20/2024 6:43 AM CDT us Amber Loo MD LAB - PATHOLOGY/CYTOLOGY ORDERA BLES Final Result DERMATOPATHOLOGY LABORATORY [facility] - Department of Dermatology [address], [address] [place] [address], [facility] [phone] documented in this encounter Visit Diagnoses Not on filedocumented in this encounter
--- OUTSIDE RECORDS SUMMARY | 2025-01-26 00:34 | XMS_ITS | Encounter Summary ---
Author Organization [facility] Address [address] [facility] [place] [address] Care Team Providers Care Farmworker Chicken Farm Name Role Phone Unavailable Primary Care Provider Unavailabl e Encounter Details Date Type Department Care Team (Late st Contact Info) Description 08/03/2024 Lab Requisition [facility] Physician [facility] - DermPath Lab [address] [facility], [place] [address] Andree Flores MD [address] [facility] 3 [place] [address] Social History Tobacco Use Types Packs/Day Years [...] Priority Date/Time Associated Diagnosis Comments DERMATOPATHOLOGY Routine 08/03/2024 3:57 PM CDT documented in this encounter Results * DERMATOPATHOLOGY (08/03/2024 3:57 PM CDT) Case Report Dermatopathology Report Case: [id number] Authorizing Provider: Andree Flores MD Collected: 08/03/2024 03:57 PM Ordering Location: [facility] Physician [facility] - Received: 08/05/2024 06:48 AM DermPath Lab Pathologist: Brittanie Simon MD Specimen: Skin, right cheek 3:27 PM CDT DERMATOPATHOLOGY LABORATORY Final Diagnosis Specimen A. SKIN, right cheek: SQUAMOUS CELL CARCINOMA, WELL DIFFERENTIATED; SUPERFICIAL PORTIONS OF (C44.329) (see microscopic description) 3:27 PM CDT DERMATOPATHOLOGY LABORATORY at 1527 CDT Clinical History [facility] vs. [facility] [place] Papule 3:27 PM CDT DERMATOPATHOLOGY LABORATORY Gross Description Specimen A: Received is one formalin filled container labeled with the patient's name and designated right cheek. The specimen consists of a shave biopsy measuring 3x3x1 mm. Jar 0. 3:27 PM CDT DERMATOPATHOLOGY LABORATORY Microscopic Description Specimen A. SKIN, right cheek: Arising in the epidermis and extending into the dermis there are irregularly shaped aggregates of keratinocytes showing evidence of premature cornification. Ki67 is positive in predominantly lower-level intraepidermal keratinocytes. Additional deeper sections were obtained and reviewed. 3:27 PM CDT DERMATOPATHOLOGY LABORATORY Disclaimer An external and internal positive and negative controls are appropriate for the histochemical, immunohistochemical and immunofluorescence stain(s) in this case (if any), except where stated explicitly. The performance characteristics of the stain(s) cited in this report were developed and its performance characteristic determined by the Dermatopathology Laboratory at [facility], directed by Dr. Angela Everett. These tests need not be, and therefore are not, approved by the [place] Food and Drug Administration. The tests are used for clinical purposes. Billing Codes Specimen Charges Stain Charges 61303 1 26969 1 3:27 PM CDT DERMATOPATHOLOGY LABORATORY Embedded Images 3:27 PM CDT DERMATOPATHOLOGY LABORATORY Pathology/Cytolo gy TISSUE SPECIMEN FROM SKIN / Unknown 08/03/2024 3:57 PM CDT 08/05/2024 6:48 AM CDT us Andree Flores MD LAB - PATHOLOGY/CYTOLOGY ORD ERABLES Final Result DERMATOPATHOLOGY LABORATORY [facility] - Department of Dermatology [address], [address] [phone] documented in this encounter Visit Diagnoses Not on filedocumented in this encounter
--- OUTSIDE RECORDS SUMMARY | 2025-01-26 00:34 | XMS_ITS | Clinical Summary ---
Author Organization [facility] Address [address] [place] [address] Care Team Providers Care Makeup Editor Name Role Phone Unavailable Primary Care Provider Unavailabl e Source Comments [facility] [employer],non-owned Affiliates and Associated Physician Practices is amultiple site organization consisting of ambulatory clinics and hospital sitesin [place], [place], [place] and [place]. This disclosure is being madepursuant to the Care Everywhere program and may not contain all information available regarding this patient. Last updated 17.[facility] [employer] Social History Tobacco Use Types Packs/Day Years [...] 2005 ZOSTER VACCINE (1 of 2) 2005 DEPRESSION SCREENING 04/08/2024 COVID-19 VACCINE (1 - 2023-2 5 season) 2024 INFLUENZA VACCINE (#1) 2024 Respiratory Syncytial Virus (RSV) Vaccine Pt: or [...] to complete this topic MENINGOCOCCAL (Group B) VACC INE SHARED DECISION-MAKING Aged Out No longer eligibl e based on patient's age to complete this topic MENINGOCOCCAL GROUPS A/C/Y/W VACCINE Aged Out No longer eligible b ased on patient's age to complete this topic Insurance MEDICARE MEDICARE [facility]
--- OUTSIDE RECORDS SUMMARY | 2025-01-26 00:34 | XMS_ITS | Encounter Summary ---
Author Organization [facility] Address [address] [place] [address] Care Team Providers Care Epic Manager Name Role Phone Unavailable Primary Care Provider Unavailabl e Encounter Details Date Type Department Care Team (Late st Contact Info) Description 12/20/2022 Lab Requisition [facility] - DermPath Lab [address] [facility], [place] [address] Andree Flores MD [address] [facility] 3 [place] [address] Social History Tobacco Use Types Packs/Day Years [...] AM CDT) Case Report Dermatopathology Report Case: [id number] Authorizing Provider: Andree Flores MD Collected: 12/19/2022 11:07 AM Ordering Location: [facility] DermPath Lab Received: 12/20/2022 12:42 PM Pathologist: Shakira Everett MD Specimens: A) - Skin, left brow B) - Skin, mid back 1:49 PM CDT DERMATOPATHOLOGY LABORATORY Final Diagnosis Specimen A. 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 SKIN, mid back: LENTIGINOUS MELANOCYTIC NEVUS, JUNCTIONAL TYPE (D22.5) POST-INFLAMMATORY PIGMENT ALTERATION (L81.9) 1:49 PM CDT DERMATOPATHOLOGY LABORATORY at 1349 CDT Clinical History A: R/O AK vs BCC; [place] Papule B: R/O Melanoma, Nevus, Irregular [place] Papule 1:49 PM CDT DERMATOPATHOLOGY LABORATORY Gross Description [...] purposes. Billing Codes Specimen Charges Stain Charges 06887 08768 1 1 3 1:49 PM CDT DERMATOPATHOLOGY LABORATORY Embedded Images 1:49 PM CDT DERMATOPATHOLOGY LABORATORY Pathology/Cytology TISSUE SPECIMEN FROM SKIN / Unknown 12/19/2022 11:07 AM CDT 12/20/2022 12:42 PM CDT Miscellaneous samples (specimen) TISSUE SPECIMEN FROM SKIN / Unknown 12/19/2022 11:07 AM CDT 12/20/2022 12:42 PM CDT us Andree Flores MD LAB - PATHOLOGY/CYTOLOGY ORD ERABLES Final Result DERMATOPATHOLOGY LABORATORY [facility] - Department of Dermatology [facility] [address] [place] [address], [address] [phone] documented in this encounter Visit Diagnoses Not on filedocumented in this encounter
--- OUTSIDE RECORDS SUMMARY | 2025-01-26 00:34 | XMS_ITS | Encounter Summary ---
Author Organization [facility] Address [address] [facility] [place] [address] Care Team Providers Care Plastic Surgery Assistant Name Role Phone Unavailable Primary Care Provider Unavailabl e Encounter Details Date Type Department Care Team (Late st Contact Info) Description 01/27/2024 Lab Requisition [facility] Physician [facility] - DermPath Lab [address] [facility], [place] [address] Andree Flores MD [address] [facility] 3 DE[place] [address] Social History Tobacco Use Types Packs/Day Years [...] PM CDT) Case Report Dermatopathology Report Case: [id number] Authorizing Provider: Andree Flores MD Collected: 01/27/2024 03:53 PM Ordering Location: [facility] Physician [facility] - Received: 01/28/2024 12:12 PM DermPath Lab Pathologist: Mirela Ojeda MD Specimens: A) - Skin, left superior chest B) - Skin, left lower back 12:30 PM CDT DERMATOPATHOLOGY LABORATORY Final Diagnosis Specimen A. SKIN, left superior chest: HYPERPLASTIC (HYPERTROPHIC) ACTINIC KERATOSIS (L57.0) Specimen B. SKIN, left lower back: BASAL CELL CARCINOMA, SUPERFICIAL MULTIFOCAL (C44.519) 12:30 PM CDT DERMATOPATHOLOGY LABORATORY at 1230 CDT Clinical History A: AK vs SCC, pink [...] determined by the Dermatopathology Laboratory at [facility], directed by Dr. Angela Everett. These tests need not be, and therefore are not, approved by the [place] Food and Drug Administration. The tests are used for clinical purposes. Billing Codes Specimen Charges Stain Charges 64320 72721 1 1 12:30 PM CDT DERMATOPATHOLOGY LABORATORY Embedded Images 12:30 PM CDT DERMATOPATHOLOGY LABORATORY Pathology/Cytology TISSUE SPECIMEN FROM SKIN / Unknown 01/27/2024 3:53 PM CDT 01/28/2024 12:12 PM CDT Miscellaneous samples (specimen) TISSUE SPECIMEN FROM SKIN / Unknown 01/27/2024 3:53 PM CDT 01/28/2024 12:12 PM CDT us Andree Flores MD LAB - PATHOLOGY/CYTOLOGY ORD ERABLES Final Result DERMATOPATHOLOGY LABORATORY [facility] - Department of Dermatology [facility] Medicine [address] [place] [address], [address] [phone] documented in this encounter Visit Diagnoses Not on filedocumented in this encounter
--- OUTSIDE RECORDS SUMMARY | 2025-01-26 00:34 | XMS_ITS | Patient Health Record ---
Author Organization [facility] Address [address] [facility] [address] [place], [place] [address] Care Team Providers Care Multifocal Lens Inspector Name Role Phone ELISEO CARDENAS Primary Care Provider MILANA Espinoza Unavailable [phone] Allergies Allergen (clinical drug ingredient) Drug/Non Drug Allergy documented on EMR Reaction Allergy Type Onset Date Status Latex Latex (uncoded) Unknown Allergy Acti ve Reason For Referral No Information Medications Medication SIG (Take, Route, Frequency, Duration) Notes Start Date End Date Status ZyrTEC 10 mg 1 tab(s) orally once a day Active Zinc Picolinate, 500 g Active Calcium 600+D 600 mg-200 units 1 tab(s) orally 3 times a day; Duration: 30 day(s) Active Vitamin D3 50,000 intl units as directed orally once a week; Duration: 30 day(s) Active Vitamin C 500 mg 1 tab(s) orally once a day; Duration: 30 day(s) Active Prempro 0.625 mg-5 mg 1 tab(s) orally on ce a day; Duration: 30 day(s) Active valACYclovir 500 mg 1 tab(s) orally once a day; Duration: 7 day(s) Active lysine Active Prempro 0.625 mg-5 mg 1 tab(s) orally on ce a day; Duration: 30 day(s) Active azelastine nasal 137 mcg/inh 2 spray(s) intranasally 2 times a day; Duration: 30 day(s) Active CoQ10 (obsolete) Act emerald losartan 50 mg 1 tab(s) orally BID Active Social History Tobacco Use: Social History Observation Description Date Details (start date - stop date) Never Smoker NA - NA Smoking Question Answer Notes Status Never Smoker Problems Problem Type SNOMED Code ICD Code Onset Dates Problem Status W/U Status Risk Notes Problem Gastroesophageal reflux disease without esophagitis (535626587) Gastroesophageal reflux disease without esophagitis (K21.9) Active confirmed Pt as EOE Problem History of polyp of colon (situation) (804203338) Hx of colonic polyps (Z86.010) Active confirmed Plan Of Treatment Pending Test Test Name Order Date Colonoscopy 05/04/2021 EGD w/ 4 day HOLDEN (off meds) 05/04/2021 Insurance Providers Payer Name Payer Address Payer Phone Subscriber Number Group Number Insured Name Patient Relationship to Insured Coverage Start Date Coverage End Date MEDICARE [address] [place]RE [place]T [id number] [phone] [id number] SHARONA AMOS Self - patient is the insured [facility] [address] [place] [address] [id number] SHARONA AMOS Self - patient is the insured Medical (General) History Medical History History ICD Code 05/31/21: Holden: Mild pathological reflu x on Day 3. 05/31/21: EGD: Grade 2 esoph agitis, BX done. NL stomach and duodenum. BX for H. pylori done. 05/31/21: Stomach, antrum, B X: Mild chronic inactive gastritis. Stomach, body, BX: Mild reactive changes suggestive of PPI effect. Esophagus, distal, BX: Esophagitis w/increased Eosinophils. 05/17/21: Colon: Mild sigmoid and descen ding colon diverticulosis. Acid Reflux Hypertension Surgical History Surgery Date(Month/Year) [facility]
--- OUTSIDE RECORDS SUMMARY | 2025-01-26 00:34 | XMS_ITS | Clinical Summary ---
Author Organization [place] [id number] [facility] Address [address] [place] [address] Care Team Providers Care Disc Inspector Name Role Phone Paul Jurado MD Primary Care Provider Allergies Active Allergy Reactions Criticality Noted Date Comments Latex, Natural Rubber Rash,Other (See comments) Medium 03/06/2017 Patient says I am sensitive to latex Medications azelastine (ASTELIN) 137 mcg (0.1 %) nasal sprayIndications: Vasomotor Rhinitis Administer 2 sprays into each nostril 2 (two) times a day 3 Active losartan (COZAAR) 100 mg tabletIndications :hypertension Take 1 tablet (100 mg total) by mouth every morning 3 Active omeprazole (PriLOSEC) 40 mg capsuleIndication s:acid reflux Take 1 capsule (40 mg total) by mouth every morning 3 Active valACYclovir (VALTREX) 500 mg tabletIndications :Chronic Suppression,HSV Take 1 tablet (500 mg total) by mouth every morning 3 Active valACYclovir (VALTREX) 1 gram tabletIndications :Prophylaxis, Medical,HSV outbreaks Take 1 tablet (1,000 mg total) by mouth 2 (two) times a day as needed Active rosuvastatin (CRESTOR) 5 mg tabletIndications :hyperlipidemia Take 1 tablet (5 mg total) by mouth nightly 04/14/202 5 Active multivitamin tabletIndications :Vitamin Deficiency Prevention Take 1 tablet by mouth every morning Active ASHWAGANDHA EXTRACT ORALIndications:s upplement Take 1 tablet by mouth every morning Active cholecalciferol, vitamin D3, (VITAMIN D3 ORAL)Indications: supplement Take 1 tablet by mouth every morning Active CALCIUM ORALIndications:s upplement Take 1 tablet by mouth every morning Active BOSWELLIA EDITH EXTRACT ORALIndications:s upplement Take 1 tablet by mouth every morning Active mirabegron ER (Myrbetriq) 50 mg tablet extended release 24 hrIndications:Uri nary Urge Incontinence Take 1 tablet (50 mg total) by mouth every morning Active diclofenac DR (VOLTAREN) 75 mg EC tabletIndications :Pain,inflammatio n Take 1 tablet (75 mg total) by mouth 2 (two) times a day Active Active Problems Problem Noted Date Diagnosed Date Chronic pain of left knee 10/05/2024 Basal cell carcinoma of face 09/09/2024 Squamous cell carcinoma of face 09/09/2024 Acute pain of left knee 08/06/2022 Effusion of left knee 08/06/2022 Primary osteoarthritis of left knee 08/06/2022 Tear of medial meniscus of left knee, current Immunizations Immunization Administration Dates Next Due Influenza, Quad, Adjuvantate d, Intramuscular 01/24/2022 Influenza, Quadrivalent, Spl it, Preservative Free, Intramuscular 01/16/2023 Influenza, Trivalent, High D ose, Split, Preservative Free, Intramuscular 01/30/2024 Moderna SARS-CoV-2 Monovalen t Vaccination (12+ YRS) 02/27/2021,06/13/2020,05/16/2020 Surgical History Surgery Date Site/Laterality Comments INCONTINENCE SURGERY 02/06/2017 - 03/07/2017 bladder sling COLONOSCOPY Last one was 2021 ESOPHAGOGASTRODUODENOSCOPY Last one was 2021 CARPAL TUNNEL RELEASE 04/08/2022 - 04/07/2023 Bilateral MOHS SURGERY 04/08/2007 - 04/07/2008 face MELANOMA RESECTION 04/08/2021 - 04/07/2022 Right arm MOHS SURGERY 04/08/2016 - 04/07/2017 Left face BASAL CELL CARCINOMA EXCISION 01/07/2024 - 02/06/2024 lower back Medical History Medical History Date Comments Cancer (HCC) Skin 2007 GERD (gastroesophageal reflux disease) 2009 Hypertension 2014 ?? Family History Medical History Relation Name Comments Rashes / Skin problems Brother Austen Cancer Father Dad Heart disease Father Dad Heart failure Father Dad Hypertension Father Dad Cancer Mother Gout Mother Hypertension Mother Cancer Sister Cat (rosachea) Rashes / Skin problems Sister Cat (rosachea) Relation Name Status Comments Brother Austen Alive Father Dad Mother Sister Cat (rosachea) Social History Tobacco Use Types Packs/Day Years Used Date Smoking Tobacco: Never Passive Smoke Exposure: Past Smokeless Tobacco: Never Tobacco Cessation:Counseling Given: Not Answered AUDIT-C Answer Date Recorded Q1: How often do you have a drink containing alc ohol? 2-3 times a week 09/16/2024 Q2: How many drinks containi ng alcohol do you have on a typical day when you are drinking? 1 or 2 09/16/2024 Q3: How often do you have si x or more drinks on one occasion? Never 09/16/2024 Comments Unknown Sex and Gender Information Value Date Recorded Sex Assigned at Not on file Legal Sex Female 3:17 PM CDT Gender Identity Not on file Sexual Orientation Not on file Obstetrics History Last Filed Vital Signs Vital Sign Reading Time Taken Comments Blood Pressure 133/80 09/16/2024 2:17 PM CDT Pulse 65 09/16/2024 2:17 PM CDT Temperature - - Respiratory Rate - - Oxygen Saturation - - Inhaled Oxygen Concentration - - Weight 82.6 kg (182 lb 3.2 oz) 09/16/2024 2:17 P M CDT Height 165.1 cm (5' 5) 09/16/2024 2:17 PM CDT Body Mass Index 30.32 09/16/2024 2:17 PM CDT Plan of Treatment Health Maintenance Due Date Last Done Comments Colon Cancer Screening-Colonoscopy 1955 Depression Screening 1955 Fall Risk Assessment 1955 Hepatitis C Screening 1955 Osteoporosis Screening-Bone Density Scan 1955 DTaP/Tdap/Td Vaccine (1 - Tdap) 1966 Hepatitis B Screening 1973 Pneumococcal vaccine 65+ (1 of 1 - PCV) 2005 Zoster Vaccine (1 of 2) 2005 Well Visit 65+ 2020 Breast Cancer Screening-Mammogram 03/21/2022 03/21/2021, 02/23/2020, 02/18/2019 Covid-19 Vaccine (2024-2 6 season) 2024 02/01/2023, 02/17/2022, 02/27/2021, Additional history exists Influenza Vaccine (#1) 2024 , 01/16/2023, 01/24/2022 Insurance MEDICARE [facility] Member Subscriber Plan / Payer (Ef fective 2022-Present) Name:Toshia Pleitez Relation to Subscriber:Self Name:Toshia Pleitez Payer ID:[id number] Group ID:Not on file Type:[employer] [place] Address: [employer] [address] [place] [address] MEDICARE AARP Member Subscriber Plan / Payer (Ef fective 2022-Present) Name:Toshia Pleitez Relation to Subscriber:Self Name:Lamberto Pleitezen Payer ID:[id number] Group ID:Not on file Type:COMMERCIAL Address: [employer] [address] [place] [address] Care Teams Disc Inspector Relationship Specialty Start Date End Date Paul Jurado MD [address] [place] [address] PCP - General Internal Medicine 07/31/22
--- OUTSIDE RECORDS SUMMARY | 2025-01-26 00:34 | XMS_ITS | Patient Health Record ---
Author Organization [facility] Training Advisor [facility] Address [address] [facility] [address] [place] [address] Support Name Relationship Address Phone Ajith Moscoso Emergency Contact [address] [place] [address] Unavailable Toshia Desouza Guarantor Unknown [phone] Reason For Referral No Information Medications Medication SIG (Take, Route, Frequency, Duration) Notes Start Date End Date Status acyclovir 50 mg buccal tablet *please review for potential update for e-prescription and drug interaction check* acyclovir 50 mg buccal tablet 01/20/2019 Active Calcium 600+D oral tablet *please review for potential update for e-prescription and drug interaction check* Calcium 600+D oral tablet 01/20/2019 Active ZyrTEC 10 mg oral tablet *please review for potential update for e-prescription and drug interaction check* ZyrTEC 10 mg oral tablet 02/14/2017 Active fredis 3 red *please review f or potential update for e-prescription and drug interaction check* fredis 3 red 01/20/2019 Active omeprazole 40 mg oral delayed release capsule *please review for potential update for e-prescription and drug interaction check* omeprazole 40 mg oral delayed release capsule 07/23/2017 Active oxybutynin 10 mg/24 hr oral tablet, extended release Take 1 tablet po once daily *please review for potential update for e-prescription and drug interaction check* oxybutynin 10 mg/24 hr oral tablet, extended release 01/20/2019 Active Prempro 0.625 mg-5 mg oral tablet *please review for potential update for e-prescription and drug interaction check* Prempro 0.625 mg-5 mg oral tablet 02/14/2017 Active losartan 50 mg oral tablet *please review for potential update for e-prescription and drug interaction check* losartan 50 mg oral tablet 02/14/2017 Active Plan Of Treatment No Information Insurance Providers Payer Name Payer Address Payer Phone Subscriber Number Group Number Insured Name Patient Relationship to Insured Coverage Start Date Coverage End Date [facility] [address] [place] [phone] [id number] Toshia Desouza Self - patient is the insured 2017
[2025-01-26 06:24] VITALS: BP 124/81; PULSE 79; RESP 18; TEMP 36.2; O2SAT 100
[2025-01-26] MEDS: LACTATED RINGERS 1,000 ML 150 ML IV CONT (06:38)
--- NOTE | 2025-01-26 07:16 | WPDANESEPPF ---
Anes - Initial Pre Proc Eval Procedure: Operation Date: 01/26/25 07:30 Proposed Procedures p Esophagogastroduodenoscopy & Colonoscopy - Hector Valle MD Date/Time: 01/26/25 07:16 Surgeon: Hector Valle MD Pre Op Diagnosis: Personal history of colon polyps, unspecified Patient Data Age: 69 Gender: F Height: 1.65 m Weight: 77.3 kg Last Vital Signs Temp 97.1 F L 01/26/25 06:24 Pulse 79 01/26/25 06:24 Resp 18 01/26/25 06:24 BP 124/81 01/26/25 06:24 Pulse Ox 100 01/26/25 06:24 O2 Del Method Room Air 01/26/25 06:24 Allergies Allergy/AdvReac Type Severity Reaction Status Date / Time adhesive AdvReac Unknown Rash Verified 01/26/25 06:23 latex AdvReac Unknown Rash Verified 01/26/25 06:23 Home Medications ?Medication ?Instructions ?Recorded ?Confirmed ?Type azelastine 137 mcg (0.1 %) nasal 2 spray intranasal Q12H 06/29/22 01/18/25 History spray calcium carbonate (Calcium 500) 500 mg PO DAILY 06/29/22 01/18/25 History cetirizine 10 mg capsule (Zyrtec) 10 mg PO DAILY PRN Allergy Symptoms 06/29/22 01/18/25 History losartan 100 mg tablet 100 mg PO DAILY 06/29/22 01/18/25 History omeprazole 40 mg capsule,delayed 40 mg PO BID 06/29/22 01/18/25 History release rosuvastatin 10 mg tablet 5 mg PO HS 06/29/22 01/18/25 History valacyclovir 500 mg tablet 500 mg PO DAILY 06/29/22 01/18/25 History ashwagandha root extract 300 mg 300 mg PO DAILY 04/16/23 01/18/25 History capsule qgassywg-xsvu-yejc 8 mg-folic 400 1 tablet PO DAILY 06/26/23 01/18/25 History mcg-K 50 mcg-lutein 300 mcg tablet (Centrum Silver Women) ascorbic acid (vitamin C) 500 mg 250 mg PO DAILY 04/23/24 01/18/25 History tablet cholecalciferol (vitamin D3) 50 50 mcg PO DAILY 04/23/24 01/18/25 History mcg (2,000 unit) tablet diclofenac sodium 75 mg 75 mg PO BID 04/23/24 01/18/25 History tablet,delayed release mirabegron 50 mg tablet,extended 50 mg PO DAILY 01/18/25 01/18/25 History release 24 hr (Myrbetriq) Patient hx anesthesia problems: none Family hx anesthesia problems: none Results Review: All pre-operative results and documents have been reviewed as part of the pre-operative evaluation. 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 History of Mohs micrographic surgery for skin cancer 2007, 2016 face, 2019 right upper arm Basal cell carcinoma of skin of face 2007, 2016 Surgical History Surgical History History of bladder surgery (~2016) Bladder Lift S/P dilation and curettage History of Mohs surgery for squamous cell carcinoma in situ of skin History of esophagogastroduodenoscopy (EGD) History of colonoscopy Status post creation of urethral sling by suprapubic approach History of arthroscopic knee surgery meniscus surgery - right knee 2021 Family History Family History Mother Hypertension Depression Fibrotic lung diseases Cancer Father Hypertension Heart disease Crohn's disease Sibling Multiple sclerosis Thyroid disorder Social History Social History Smoking status: Never smoker Alcohol intake: current Drinks per week: 6 Alcohol use details: beer and wine Substance use: never Substance use type: does not use Lack of Transportation: No Lack of Food: Never True Current Housing: I Have Housing Concerned About Future Housing: No Difficulty Paying Gas/Electric Bills: No Difficulty Paying for Meds: No Currently Unemployed: YES Living arrangements: with family Occupation/Education: retired Gender identity (if verbalized by the patient): Female Sexual Orientation (if Verbalized by the Patient): Straight or Heterosexual Agree to blood products: Yes Anes - Eval Final PreProcedure Day of Procedure 01/26/25 07:16 Patient weight: overweight Lungs: normal air movement Airway: Mallampati scale class II and special considerations (Lower perm retainer. ) Neurological: alert and oriented Last oral intake: >/= 8 hours ASA classification: II Emergent: no Anesthetic plan: proceed Anesthesia type and monitoring: general GIVS and standard monitoring Results Review: All pre-operative results and documents have been reviewed as part of the pre-operative evaluation. HTN, hyperlipidemia, GERD, hx of stress test 2019 in [place], reported as normal. Pt active, limited by knee pain, no cp or sob w recent home remodel. Informed Consent: The patient's anesthetic plan and its attendant risks and benefits were discussed with the patient/family/POA. Questions were solicited and answers provided to the satisfaction of the patient/family/POA.
--- NOTE | 2025-01-26 07:28 | PM.HPGS ---
History of Present Illness History of Present Illness Consent: Risks, benefits, and alternatives have been discussed and questions answered. Patient agrees to proceed with procedure. 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 History of Mohs micrographic surgery for skin cancer 2007 face, 2016 face, 2019 right upper arm Basal cell carcinoma of skin of face 2007, 2016 Surgical History Surgical History History of bladder surgery (~2016) Bladder Lift S/P dilation and curettage History of Mohs surgery for squamous cell carcinoma in situ of skin History of esophagogastroduodenoscopy (EGD) History of colonoscopy Status post creation of urethral sling by suprapubic approach History of arthroscopic knee surgery meniscus surgery - right knee 2021 Family History Family History Mother Hypertension Depression Fibrotic lung diseases Cancer Father Hypertension Heart disease Crohn's disease Sibling Multiple sclerosis Thyroid disorder Social History Social History Smoking status: Never smoker Alcohol intake: current Drinks per week: 6 Alcohol use details: beer and wine Substance use: never Substance use type: does not use Lack of Transportation: No Lack of Food: Never True Current Housing: I Have Housing Concerned About Future Housing: No Difficulty Paying Gas/Electric Bills: No Difficulty Paying for Meds: No Currently Unemployed: YES Living arrangements: with family Occupation/Education: retired Gender identity (if verbalized by the patient): Female Sexual Orientation (if Verbalized by the Patient): Straight or Heterosexual Agree to blood products: Yes Meds Home Medications and Allergies Home Medications ?Medication ?Instructions ?Recorded ?Confirmed ?Type azelastine 137 mcg (0.1 %) nasal 2 spray intranasal Q12H 06/29/22 01/18/25 History spray calcium carbonate (Calcium 500) 500 mg PO DAILY 06/29/22 01/18/25 History cetirizine 10 mg capsule (Zyrtec) 10 mg PO DAILY PRN Allergy Symptoms 06/29/22 01/18/25 History losartan 100 mg tablet 100 mg PO DAILY 06/29/22 01/18/25 History omeprazole 40 mg capsule,delayed 40 mg PO BID 06/29/22 01/18/25 History release rosuvastatin 10 mg tablet 5 mg PO HS 06/29/22 01/18/25 History valacyclovir 500 mg tablet 500 mg PO DAILY 06/29/22 01/18/25 History ashwagandha root extract 300 mg 300 mg PO DAILY 04/16/23 01/18/25 History capsule vdiyzjvo-fqoo-hcyr 8 mg-folic 400 1 tablet PO DAILY 06/26/23 01/18/25 History mcg-K 50 mcg-lutein 300 mcg tablet (Centrum Silver Women) ascorbic acid (vitamin C) 500 mg 250 mg PO DAILY 04/23/24 01/18/25 History tablet cholecalciferol (vitamin D3) 50 50 mcg PO DAILY 04/23/24 01/18/25 History mcg (2,000 unit) tablet diclofenac sodium 75 mg 75 mg PO BID 04/23/24 01/18/25 History tablet,delayed release mirabegron 50 mg tablet,extended 50 mg PO DAILY 01/18/25 01/18/25 History release 24 hr (Myrbetriq) Allergies Allergy/AdvReac Type Severity Reaction Status Date / Time adhesive AdvReac Unknown Rash Verified 01/26/25 06:23 latex AdvReac Unknown Rash Verified 01/26/25 06:23 Vital Signs Vital Signs - 24 hr 01/26/25 06:24 Temperature 97.1 F L Pulse Rate 79 Respiratory Rate 18 Blood Pressure 124/81 Pulse Oximetry 100 Oxygen Delivery Room Air Exam Const: General: comfortable and no acute distress HENMT: Face/Nose/Sinus: Normal nares present Eyes: General: appearance normal, both eyes and all related structures Neck: Neck: no JVD Resp: Auscultation: clear to auscultation bilaterally Cardio: Rate: regular rate Rhythm: regular rhythm GI: Inspection: non-distended GI Palp: Yes Soft to palpation Skin: General skin exam: normal color Extrem: General: normal to inspection Psych: Mental Status: mental status grossly normal Assessment and Plan Assessment and plan (1) Gastro-esophageal reflux disease with esophagitis, without bleeding: Code(s): K21.00 - Gastro-esophageal reflux disease with esophagitis, without bleeding Status: Acute Assessment and Plan: egd (2) Colon polyp: Code(s): K63.5 - Polyp of colon Status: Acute Assessment and Plan: colonoscopy (3) IBS (irritable bowel syndrome): Code(s): K58.9 - Irritable bowel syndrome, unspecified Status: Acute
--- NOTE | 2025-01-26 07:35 | S_PTH ---
PATIENT: Toshia Desouza LOC: [place] Roche#:[id number] AGE/SX: 69/F ROOM: RE01/26/[address]: Hector Valle MD : 1955 BED: DIS: 01/26/2025 SPEC #: [id number] RECD: 01/26/25 07:45 STATUS: JASON JIMENEZ #: [id number] HIRAM: 01/26/25 07:[address]: Hector Valle DEPT: [facility] Surgical RECD BY: Jade Moran ENTERED: 01/26/25 07:46 SP TYPE: Surgical OTHR DR: Paul Jurado MD Tissues: A - Small Bowel Bx B - Gastric Biopsy C - Esophageal Biopsy D - Colon Polypectomy Procedures: Hematoxylin and Eosin Stain Gross and Microscopic Level 4
--- NOTE | 2025-01-26 07:43 | SUR.OPER ---
EGD: [id number] COLON: Start 740
[2025-01-26 07:53] VITALS: BP 107/54; PULSE 75; RESP 21; O2SAT 100
[2025-01-26 08:03] VITALS: BP 110/56; PULSE 74; RESP 17; O2SAT 98
[2025-01-26 08:13] VITALS: BP 124/60; PULSE 67; RESP 16; O2SAT 100
== END 2025-01-26 08:26 | disposition home or self-care (01) ==
PROVIDERS: PCP Internal Medicine; Visit Provider Internal Medicine Gastroenterology
PROC: 0DJ08ZZ Inspection of Upper Intestinal Tract, Via Natural or Artificial Opening Endoscopic (ICD-10-PCS; CPT 45378; principal; 2025-01-26 07:30)
DX: K21.9 Gastro-esophageal reflux disease without esophagitis (principal); K58.9 Irritable bowel syndrome, unspecified; K64.8 Other hemorrhoids; K57.30 Diverticulosis of large intestine without perforation or abscess without bleeding; K63.89 Other specified diseases of intestine; K22.89 Other specified disease of esophagus; E78.5 Hyperlipidemia, unspecified; I10 Essential (primary) hypertension; F41.9 Anxiety disorder, unspecified; R32 Unspecified urinary incontinence; Z98.890 Other specified postprocedural states; Z86.0100 Personal history of colon polyps, unspecified; Z85.820 Personal history of malignant melanoma of skin; Z84.89 Family history of other specified conditions; Z82.49 Family history of ischemic heart disease and other diseases of the circulatory system
CPT/HCPCS: 43239; 45380; 88305; J2003; J2704; J7120